=== PATIENT | female | born 1935 | race Caucasian/White ===

== ENCOUNTER 2016-12-12 08:27 | Inpatient (IN) | payer OTHER ==
[2016-12-12] MEDS ORDERED: DIAZEPAM 5 MG TAB PO ONE (08:36)
[2016-12-12] MEDS ORDERED: ASPIRIN EC 325 MG TAB PO ONE (08:36)
[2016-12-12] MEDS ORDERED: NS 1,000 ML IV ONE (08:36)
[2016-12-12] MEDS ORDERED: methylPREDNISolone SOD SUCC 125 MG/2 ML VIAL IVP ONE (08:36)
[2016-12-12] MEDS ORDERED: FAMOTIDINE 20 MG/NACL 50 ML IV ONE (08:36)
[2016-12-12] MEDS ORDERED: EPINEPHrine 1 MG/10 ML SYR IVP ONE (08:58)
[2016-12-12] MEDS ORDERED: methylPREDNISolone SOD SUCC 125 MG/2 ML VIAL ONE (08:58)
--- NOTE | 2016-12-12 08:58 | CPEKG ---
Heart Rate: 70 RR Interval: 857 P-R Interval: 144 QRSD Interval: 80 QT Interval: 372 QTC Interval: 402 P Charlotte: 83 QRS Charlotte: -3 T Wave Charlotte: 19 EKG Severity - NORMAL ECG - EKG Impression: SINUS RHYTHM EKG Impression: SINUS RHYTHM HAS REPLACED SVT (AND DRAMATIC ST/T WAVE CHANGES) EKG Impression: NON SPECIFICST/T CHANGES REMAIN Electronically Signed By: Edwin Ramirez 14-Dec-2016 08:56:28
[2016-12-12] MEDS ORDERED: fentaNYL 100 MCG/2 ML INJ ONE (08:59)
[2016-12-12] MEDS ORDERED: FAMOTIDINE 20 MG/NACL/50 ML BAG IV ONE (08:59)
[2016-12-12] MEDS ORDERED: LIDOCAINE 1% 30 ML SDV ONE (08:59)
[2016-12-12] MEDS ORDERED: MIDAZOLAM 2 MG/2 ML VIAL ONE (08:59)
[2016-12-12] MEDS ORDERED: IOPAMIDOL (ISOVUE-370) 150 ML BTL IV ONE (08:59)
[2016-12-12 09:17] LABS: % IMMATURE GRANULYOCYTES 0.3 % (0.0-1.1); ABSOLUTE IMMATURE GRANULOCYTES 0.02 10^3/uL (0.00-0.10); ADD DIFF? NO; ADD MORPH? NO; ADD SCAN? NO; ATYPICAL LYMPHOCYTE FLAG 10 (0-99); FRAGMENT RBC FLAG 0 (0-99); HEMATOCRIT 40.2 % (38.0-47.0); HEMOGLOBIN 13.5 g/dL (12.6-16.3); LEFT SHIFT FLG 0 (0-99); LIPEMIA HEMOLYSIS FLAG 80 (0-99); MEAN CELL HEMOGLOBIN 31.9 pg (27.9-34.1); MEAN CELL HEMOGLOBIN CONCENTR. 33.6 g/dL (32.4-36.7); MEAN PLATELET VOLUME 9.4 fL (8.7-11.7); PLATELET CLUMPS FLAG 0 (0-99); PLATELET COUNT 182 10^3/uL (150-400); RED BLOOD CELL COUNT 4.23 10^6/uL (4.18-5.33); RED CELL DISTRIBUTION WIDTH 13.5 % (11.5-15.2)
[2016-12-12 09:27] LABS: INR 1.06 (0.83-1.16); PROTIME(PATIENT) 13.7 SEC (12.0-15.0)
[2016-12-12 09:42] LABS: ANION GAP 9 mEq/L (8-16); CARBON DIOXIDE 25 mEq/l (22-31); CHLORIDE 109 mEq/L (97-110); CHOLESTEROL 176 mg/dL (140-220); CHOLESTEROL/HDL RATIO 2.29 RATIO (1.00-4.44); CREATININE 0.7 mg/dL (0.6-1.0); GLOMERULAR FILTRATION RATE > 60; GLUCOSE 88 mg/dL (70-100); HIGH DENSITY LIPOPROTEIN 77 mg/dL (40-85); LDL/HDL RATIO 1.13 RATIO (1.00-3.22); LOW DENSITY LIPOPROTEIN 87 mg/dL (80-100); MAGNESIUM 1.9 mg/dL (1.6-2.3); NON-HIGH DENSITY LIPOPROTEIN 99 mg/dL (90-129); SODIUM 143 mEq/L (134-144); TRIGLYCERIDE 64 mg/dL (35-135); VERY LOW DENSITY LIPOPROTEINS 12 mg/dL (8-25)
--- NOTE | 2016-12-12 11:04 | PDDXCAT ---
Diagnostic Cath Note - . Date: 12/12/16 Solar Consultant: Jw Indication: other (pre AVR) - Procedure Access: right groin Procedure: coronary angiography, right heart catheterization - Materials Left Heart Cath size: 6F Left Heart Cath materials: JL4.0, JR4.0 Right Heart Cath size: 7F Right Heart Cath materials: PWP catheter - Findings-Left Heart Catheterization LM: minimal CAD LAD: minimal CAD in the LAD. 1 principal diagonal with 30% ostial stenosis LCX: two large branching OMs. No sig CAD RCA: dominant. No flow limiting CAD - Findings-Right Heart Catheterization RA: mean 11 mmHg RV: 49/7 PA: 48/21. Mean 33 PAOP: 19 AO: 118/72 Complications: none Estimated blood loss: <50ml Closure method: Angioseal Assessment: no significant CAD in this right dominant system Plan: AVR on 12/[address] Betts. Intervention: none
[2016-12-12] MEDS ORDERED: ONDANSETRON 4 MG/2 ML VIAL IVP PRN (11:11)
[2016-12-12] MEDS ORDERED: ATROPINE SULFATE 1 MG/10 ML SYR IVP PRN (11:11)
[2016-12-12] MEDS ORDERED: NITROGLYCERIN 0.4 MG BTL SL PRN (11:11)
[2016-12-12] MEDS ORDERED: OXYCODONE/APAP 5/325 TAB PO PRN (11:11)
[2016-12-12] MEDS ORDERED: ATROPINE SULFATE 1 MG/10 ML SYR ONE (11:14)
[2016-12-12] MEDS ORDERED: ACETAMINOPHEN 325 MG TAB PO PRN (13:23)
[2016-12-12] MEDS ORDERED: LORazepam 1 MG TAB PO PRN (13:23)
[2016-12-12] MEDS ORDERED: ALBUTEROL 60 PUFFS/8 GM MDI IH PRN (13:26)
[2016-12-12] MEDS: GLUCOSAMINE/CHONDROITIN CAP PO SCH (15:46)
[2016-12-12] MEDS: CHOLECALCIFEROL VIT D3 2,000 UNITS TAB/CAP PO SCH (15:46)
[2016-12-12] MEDS ORDERED: CHLORHEXIDINE GLUC HIBICLENS 118 ML BTL TP SCH (21:00)
[2016-12-12] MEDS: MUPIROCIN 2% 22 GM OINT NS SCH (22:14)
[2016-12-12] MEDS: LATANOPROST 0.005% 2.5 ML OPHT DROPS EACHEYE SCH (22:16)
[2016-12-13] MEDS ORDERED: SODIUM BICARBONATE 20 MEQ, LIDOCAINE 1% 10 ML in NORMOSOL-R 1,000 ML MISC ONE (06:00)
[2016-12-13] MEDS ORDERED: PHENYLEPHRINE HCL 50 MG in NS 250 ML IV ONE (06:00)
[2016-12-13] MEDS ORDERED: NS 1,000 ML IV ONE (06:00)
[2016-12-13] MEDS ORDERED: NOREPINEPHRINE BITARTRATE 16 MG in NS 250 ML IV ONE (06:00)
[2016-12-13] MEDS ORDERED: CITRATE DEXTROSE SOLN 500 ML BAG MISC ONE (06:00)
[2016-12-13] MEDS ORDERED: ceFAZolin 2 GM/DEXTROSE 100 ML IV ONE (06:00)
[2016-12-13] MEDS ORDERED: INSULIN REGULAR HUMAN 100 UNIT in NS 100 ML IV ONE (06:00)
[2016-12-13] MEDS ORDERED: MANNITOL 25% 12.5 GM/50 ML VIAL IV ONE (06:00)
[2016-12-13] MEDS ORDERED: niCARdipine/NACL 200 ML IV ONE (06:00)
[2016-12-13] MEDS ORDERED: AMINOCAPROIC ACID 5 GM/20 ML VIAL IV ONE (06:00)
[2016-12-13 06:06] LABS: ANION GAP 10 mEq/L (8-16); CALCIUM 10.1 mg/dL (8.5-10.4); CARBON DIOXIDE 21 mEq/l (22-31); CHLORIDE 113 mEq/L (97-110); CREATININE 0.6 mg/dL (0.6-1.0); GLOMERULAR FILTRATION RATE > 60; GLUCOSE 92 mg/dL (70-100); POTASSIUM 4.9 mEq/L (3.5-5.2); SODIUM 144 mEq/L (134-144); SPECIMEN HEMOLYSIS 162
[2016-12-13] MEDS ORDERED: PROTAMINE SULFATE 50 MG/5 ML VIAL IVP ONE (06:42)
[2016-12-13] MEDS ORDERED: CALCIUM CHLORIDE 1 GM/10 ML INJ ONE ×2 (06:42→08:20)
[2016-12-13] MEDS ORDERED: ALBUMIN 5% 250 ML BOTTLE IV ONE (06:42)
[2016-12-13] MEDS ORDERED: MILRINONE/DEXTROSE/100 ML BAG IV ONE (06:42)
[2016-12-13] MEDS ORDERED: POTASSIUM Cl (KCl) 20 MEQ/50 ML BAG IV ONE (06:43)
[2016-12-13] MEDS ORDERED: niCARdipine/NACL/200 ML BAG IV ONE (06:43)
[2016-12-13] MEDS ORDERED: LIDOCAINE 2% 100 MG/5 ML SYR IVP ONE ×2 (06:43→08:20)
[2016-12-13] MEDS ORDERED: DOPamine/DEXTROSE/250 ML BAG IV ONE (06:43)
[2016-12-13] MEDS ORDERED: AMINOCAPROIC ACID 5 GM/20 ML VIAL ONE (06:43)
[2016-12-13] MEDS ORDERED: CITRATE DEXTROSE SOLN 500 ML BAG ONE (06:43)
[2016-12-13] MEDS ORDERED: NA BICARBONATE 50 MEQ/50 ML VIAL ONE (06:43)
[2016-12-13] MEDS ORDERED: MAGNESIUM SULFATE 1 GM/2 ML VIAL ONE (06:44)
[2016-12-13] MEDS ORDERED: methylPREDNISolone SOD SUCC 1 GM/8 ML VIAL ONE (06:44)
[2016-12-13] MEDS ORDERED: AMIODARONE HCL 150 MG/3 ML VIAL ONE (06:44)
[2016-12-13] MEDS ORDERED: ADENOSINE 6 MG/2 ML VIAL ONE (06:44)
[2016-12-13] MEDS ORDERED: ceFAZolin 1 GM VIAL ONE (06:45)
[2016-12-13] MEDS ORDERED: HEPARIN 10,000 UNIT/10 ML MDV ONE (06:45)
[2016-12-13] MEDS ORDERED: MIDAZOLAM 2 MG/2 ML VIAL ONE ×3 (08:14→08:23)
[2016-12-13] MEDS ORDERED: ONDANSETRON 4 MG/2 ML VIAL ONE (08:20)
[2016-12-13] MEDS ORDERED: DEXAMETHASONE 4 MG/ML VIAL ONE (08:20)
[2016-12-13] MEDS ORDERED: ROCURONIUM 100 MG/10 ML VIAL ONE (08:20)
[2016-12-13] MEDS ORDERED: PHENYLEPHRINE HCL 100 MCG/ML SYR ONE ×3 (08:20→11:12)
[2016-12-13] MEDS ORDERED: SKIN ADHESIVE (DERMABOND) 1 EACH TP ONE (08:21)
[2016-12-13] MEDS ORDERED: LIDOCAINE HCL 160 MG/4 ML LTA KIT TP ONE (08:21)
[2016-12-13] MEDS ORDERED: MINERAL OIL 10 ML VIAL TP ONE (08:22)
[2016-12-13] MEDS ORDERED: REMIFENTANIL HCL 1 MG VIAL ONE (08:22)
[2016-12-13] MEDS ORDERED: fentaNYL 100 MCG/2 ML INJ ONE (08:23)
[2016-12-13] MEDS ORDERED: PROPOFOL/EMULSION 500 MG/50 ML BOTTLE IV ONE (08:23)
[2016-12-13] MEDS ORDERED: SUGAMMADEX SODIUM 200 MG/2 ML VIAL IVP ONE (11:12)
[2016-12-13] MEDS ORDERED: epHEDrine SULFATE 10 MG/ML SYR ONE ×2 (11:12→12:29)
[2016-12-13] MEDS ORDERED: PROPOFOL 200 MG/20 ML VIAL ONE (11:14)
[2016-12-13] MEDS ORDERED: fentaNYL 250 MCG/5 ML INJ ONE (11:14)
[2016-12-13] MEDS ORDERED: BUPIVACAINE/EPI 0.25% 30 ML SDV ONE (11:34)
[2016-12-13] MEDS ORDERED: KETOROLAC 30 MG/1 ML SDV ONE (11:58)
[2016-12-13] MEDS ORDERED: fentaNYL 100 MCG/2 ML INJ IVP PRN (12:24)
[2016-12-13] MEDS ORDERED: BISACODYL 10 MG SUPP PR PRN (12:24)
[2016-12-13] MEDS ORDERED: CEPACOL LOZENGE PO PRN (12:24)
[2016-12-13] MEDS ORDERED: D50W 25 GM/50 ML SYR IVP PRN (12:24)
[2016-12-13] MEDS ORDERED: POTASSIUM Cl (KCl) 50 ML IV PRN (12:24)
[2016-12-13] MEDS ORDERED: PANTOPRAZOLE SODIUM 40 MG in NS 100 ML IV ONE (12:24)
[2016-12-13] MEDS ORDERED: ONDANSETRON DISINTEGRATING 4 MG TAB PO PRN (12:24)
[2016-12-13] MEDS ORDERED: MEPERIDINE 25 MG/ML SYR IVP PRN (12:24)
[2016-12-13] MEDS ORDERED: METOCLOPRAMIDE 10 MG/2 ML VIAL IVP PRN (12:24)
[2016-12-13] MEDS ORDERED: LACTULOSE 20 GM/30 ML UDCUP PO PRN (12:24)
[2016-12-13] MEDS ORDERED: POLYETHYLENE GLYCOL 3350 17 GM PKT PO PRN (12:24)
[2016-12-13] MEDS ORDERED: ACETAMINOPHEN 650 MG SUPP PR PRN (12:24)
[2016-12-13] MEDS ORDERED: ONDANSETRON 4 MG/2 ML VIAL IVP PRN (12:24)
[2016-12-13] MEDS ORDERED: SODIUM CL NASAL 45 ML BTL EACHNARE PRN (12:24)
[2016-12-13] MEDS ORDERED: MAGNESIUM SULF 2 GM/WATER 50 ML IV ONE (12:24)
[2016-12-13] MEDS ORDERED: MAGNESIUM HYDROXIDE 30 ML UDCUP PO PRN (12:24)
[2016-12-13] MEDS ORDERED: NS 1,000 ML IV SCH (12:30)
[2016-12-13] MEDS ORDERED: INSULIN REGULAR HUMAN 100 UNIT in NS 100 ML IV SCH (12:30)
[2016-12-13] MEDS ORDERED: fentaNYL 25 MCG PATCH TD SCH (13:00)
[2016-12-13] MEDS: CHOLECALCIFEROL VIT D3 2,000 UNITS TAB/CAP PO SCH (13:10)
[2016-12-13] MEDS: GLUCOSAMINE/CHONDROITIN CAP PO SCH (13:13)
[2016-12-13] MEDS: ALBUMIN 5% 250 ML IV PRN (13:49)
[2016-12-13] MEDS: ceFAZolin 2 GM in D5W 100 ML IV SCH ×2 (13:55→20:09)
[2016-12-13] MEDS ORDERED: ceFAZolin 2 GM/DEXTROSE 100 ML IV SCH (14:00)
[2016-12-13] MEDS ORDERED: ALBUMIN 5% 250 ML IV ONE (16:30)
[2016-12-13] MEDS ORDERED: NOREPINEPHRINE BITARTRATE 16 MG in D5W 250 ML IV SCH (18:30)
[2016-12-13] MEDS: KETOROLAC 15 MG/1 ML SDV IVP SCH (20:01)
[2016-12-13 20:02] LABS: CALCULATED OXYGEN SATURATION 91 % (92-95)
[2016-12-13] MEDS: SENNOSIDES/DOCUSATE SODIUM TAB PO SCH (22:04)
[2016-12-13] MEDS: LATANOPROST 0.005% 2.5 ML OPHT DROPS EACHEYE SCH (22:04)
[2016-12-13] MEDS: MUPIROCIN 2% 22 GM OINT NS SCH (22:04)
[2016-12-13 22:57] LABS: HEMOGLOBIN 9.3 g/dL (12.6-16.3); MEAN CELL HEMOGLOBIN 31.8 pg (27.9-34.1); MEAN CELL HEMOGLOBIN CONCENTR. 33.2 g/dL (32.4-36.7); MEAN CELL VOLUME 95.9 fL (81.5-99.8); RED BLOOD CELL COUNT 2.92 10^6/uL (4.18-5.33); RED CELL DISTRIBUTION WIDTH 13.7 % (11.5-15.2)
[2016-12-13] MEDS: HYDROCODONE/APAP 5/325 TAB PO PRN (23:06)
[2016-12-14] MEDS: KETOROLAC 15 MG/1 ML SDV IVP SCH ×5 (00:04→23:50)
[2016-12-14] MEDS: ALBUMIN 5% 250 ML IV PRN (04:00)
[2016-12-14 04:22] LABS: % IMMATURE GRANULYOCYTES 0.5 % (0.0-1.1); ABSOLUTE IMMATURE GRANULOCYTES 0.05 10^3/uL (0.00-0.10); ADD DIFF? NO; ADD MORPH? NO; ADD SCAN? NO; ATYPICAL LYMPHOCYTE FLAG 0 (0-99); FRAGMENT RBC FLAG 0 (0-99); HEMATOCRIT 27.2 % (38.0-47.0); LEFT SHIFT FLG 0 (0-99); LIPEMIA HEMOLYSIS FLAG 80 (0-99); MEAN CELL HEMOGLOBIN CONCENTR. 33.1 g/dL (32.4-36.7); MEAN CELL VOLUME 96.8 fL (81.5-99.8); PLATELET CLUMPS FLAG 50 (0-99); PLATELET COUNT 89 10^3/uL (150-400); RED BLOOD CELL COUNT 2.81 10^6/uL (4.18-5.33); RED CELL DISTRIBUTION WIDTH 13.9 % (11.5-15.2)
[2016-12-14 04:35] LABS: ANION GAP 6 mEq/L (8-16); CALCIUM 8.8 mg/dL (8.5-10.4); CARBON DIOXIDE 24 mEq/l (22-31); CHLORIDE 113 mEq/L (97-110); CREATININE 0.6 mg/dL (0.6-1.0); GLOMERULAR FILTRATION RATE > 60; GLUCOSE 92 mg/dL (70-100); POTASSIUM 4.2 mEq/L (3.5-5.2); SODIUM 143 mEq/L (134-144)
[2016-12-14] MEDS: HYDROCODONE/APAP 5/325 TAB PO PRN (04:45)
[2016-12-14] MEDS: ceFAZolin 2 GM in D5W 100 ML IV SCH ×3 (05:32→22:10)
[2016-12-14] MEDS: HEPARIN 5,000 UNIT/0.5 ML SYR SC SCH ×2 (05:33→14:46)
--- NOTE | 2016-12-14 06:59 | SOAPPROG ---
SOAP Progress Note Assessment/Plan: POD #1: Mini AVR with #21 Magna bioprosthesis Severe symptomatic s/p mini AVR with #21 Magna bioprosthesis - D/C AL/FC/José drain - Transfer to PCU - Ambulation - SQ heparin for DVT prophylaxis - BB when better BP Subjective: Feels light-headed. Pain well-controlled. No SOB. Objective: Vital Signs Temp Pulse Resp BP Pulse Ox 37.6 C 67 17 87/42 L 89 L 12/14/16 06:00 12/14/16 06:30 12/14/16 06:30 12/14/16 06:30 12/14/16 06:30 Laboratory Results 12/14/16 04:00 12/14/16 04:00 12/13/16 12/14/16 12/15/16 05:59 05:59 05:59 Intake Total 1050 1223 Output Total 1595 Balance 1050 -372 PT 13.7 SEC (12.0-15.0) 12/12/16 08:50 INR 1.06 (0.83-1.16) 12/12/16 08:50 Physical Exam - Physical Exam General Appearance: WD/WN, alert, no apparent distress EENT: No scleral icterus (R), No scleral icterus (L) Neck: normal inspection Respiratory: chest non-tender, lungs clear, normal breath sounds, No respiratory distress Cardiac/Chest: regular rate, rhythm Abdomen: non-tender, soft, No distended Skin: normal color, warm/dry Extremities: No pedal edema Neuro/Psych: no motor/sensory deficits, alert, normal mood/affect, oriented x 3 ICD10 Worksheet Patient Problems: Problems Problem Status Onset S/P AVR (aortic valve replacement) Acute Aortic stenosis, severe Chronic
[2016-12-14] MEDS ORDERED: traMADol 50 MG TAB PO PRN (08:10)
[2016-12-14] MEDS ORDERED: ASPIRIN 81 MG CHEWABLE TAB TUBE PRN (09:00)
[2016-12-14] MEDS: GLUCOSAMINE/CHONDROITIN CAP PO SCH (09:30)
[2016-12-14] MEDS: CHOLECALCIFEROL VIT D3 2,000 UNITS TAB/CAP PO SCH (09:30)
[2016-12-14] MEDS: MUPIROCIN 2% 22 GM OINT NS SCH ×3 (09:31→20:56)
[2016-12-14] MEDS: SENNOSIDES/DOCUSATE SODIUM TAB PO SCH ×2 (09:31→20:54)
[2016-12-14] MEDS: PANTOPRAZOLE SODIUM 40 MG TAB PO SCH (11:58)
[2016-12-14] MEDS: ASPIRIN 81 MG CHEWABLE TAB PO SCH (20:55)
[2016-12-14] MEDS: LATANOPROST 0.005% 2.5 ML OPHT DROPS EACHEYE SCH (20:57)
[2016-12-15 04:19] LABS: % IMMATURE GRANULYOCYTES 0.4 % (0.0-1.1); ABSOLUTE IMMATURE GRANULOCYTES 0.04 10^3/uL (0.00-0.10); ADD DIFF? NO; ADD MORPH? NO; ADD SCAN? NO; ATYPICAL LYMPHOCYTE FLAG 0 (0-99); FRAGMENT RBC FLAG 0 (0-99); HEMATOCRIT 26.7 % (38.0-47.0); HEMOGLOBIN 8.7 g/dL (12.6-16.3); LEFT SHIFT FLG 0 (0-99); LIPEMIA HEMOLYSIS FLAG 80 (0-99); MEAN CELL HEMOGLOBIN 32.2 pg (27.9-34.1); MEAN CELL HEMOGLOBIN CONCENTR. 32.6 g/dL (32.4-36.7); MEAN CELL VOLUME 98.9 fL (81.5-99.8); MEAN PLATELET VOLUME 11.1 fL (8.7-11.7); PLATELET CLUMPS FLAG 0 (0-99); PLATELET COUNT 71 10^3/uL (150-400); RED CELL DISTRIBUTION WIDTH 14.4 % (11.5-15.2)
[2016-12-15 04:25] LABS: ANION GAP 6 mEq/L (8-16); CARBON DIOXIDE 24 mEq/l (22-31); CHLORIDE 108 mEq/L (97-110); CREATININE 0.7 mg/dL (0.6-1.0); GLOMERULAR FILTRATION RATE > 60; GLUCOSE 110 mg/dL (70-100); POTASSIUM 4.3 mEq/L (3.5-5.2); SODIUM 138 mEq/L (134-144)
[2016-12-15] MEDS: KETOROLAC 15 MG/1 ML SDV IVP SCH (05:58)
--- NOTE | 2016-12-15 07:44 | SOAPPROG ---
SOAP Progress Note Assessment/Plan: Assessment: POD#2 Mini AVR (jaja-sternotomy) with #21 Magna bioprosthesis Symptomatic severe - s/p tissue AVR via partial upper sternotomy. Stable early postop course. Drain out. Antithrombotic prophylaxis with ASA alone pending stability of rhythm. Acute expected blood loss anemia with thrombocytopenia - Stable. No transfusions required. Ongoing plt suppression likely exacerbated by NSAID. Presence of PPM - Hx SSS, AF/Fl ablation. No evidence postop dysfx/lead dislodgment. AF prophylaxis with BB as allowed by BP. LORAINE - Stable. Home mandibular device and nocturnal O2. Plan: D/C SQ hep and toradol. Begin diuresis. Lasix 20mg IV/KCl 10mEq today. Begin metoprolol 12.5 mg BID w conservative hold parameters. Inc activity and pulm toilet. Dispo - SNF as lives alone. ? Gopal Luis. Anticipate medical readiness within 48hrs. 12/15/16 07:43 Subjective: Animated. Feels well. Not much appetite, misses her garlic. Looking forward to shower. Motivated to participate in rehab. Objective: Vital Signs Temp Pulse Resp BP Pulse Ox 36.8 C 83 20 132/70 H 92 12/15/16 04:00 12/15/16 04:00 12/15/16 04:00 12/15/16 04:00 12/15/16 04:00 Laboratory Results 12/15/16 03:55 12/15/16 03:55 12/14/16 12/15/16 12/16/16 05:59 05:59 05:59 Intake Total 1223 950 Output Total 1595 750 Balance -372 200 PT 13.7 SEC (12.0-15.0) 12/12/16 08:50 INR 1.06 (0.83-1.16) 12/12/16 08:50 Predom rhythm sinus 60s-70s, rare Apacing. BP creep, more consistently > 100. Balanced I/Os. Stable labs. Physical Exam - Physical Exam General Appearance: alert, no apparent distress Respiratory: lungs clear Cardiac/Chest: regular rate, rhythm, other (Sternotomy CDI. Drain site dry.) Abdomen: normal bowel sounds, non-tender, soft Skin: warm/dry Extremities: swelling (1+ generalized) ICD10 Worksheet Patient Problems: Problems Problem Status Onset S/P AVR (aortic valve replacement) Acute Aortic stenosis, severe Chronic
[2016-12-15] MEDS ORDERED: FUROSEMIDE 20 MG/2 ML VIAL IVP ONE (07:45)
[2016-12-15] MEDS ORDERED: POTASSIUM CL 10 MEQ TAB PO ONE (07:45)
[2016-12-15] MEDS: CHOLECALCIFEROL VIT D3 2,000 UNITS TAB/CAP PO SCH (09:02)
[2016-12-15] MEDS: PANTOPRAZOLE SODIUM 40 MG TAB PO SCH (09:03)
[2016-12-15] MEDS: SENNOSIDES/DOCUSATE SODIUM TAB PO SCH ×2 (09:03→20:10)
[2016-12-15] MEDS: GLUCOSAMINE/CHONDROITIN CAP PO SCH (09:03)
[2016-12-15] MEDS: MUPIROCIN 2% 22 GM OINT NS SCH (09:05)
[2016-12-15] MEDS: METOPROLOL TARTRATE 25 MG TAB PO SCH (20:11)
[2016-12-15] MEDS: LATANOPROST 0.005% 2.5 ML OPHT DROPS EACHEYE SCH (20:12)
[2016-12-15] MEDS: ASPIRIN 81 MG CHEWABLE TAB PO SCH (20:12)
[2016-12-15] MEDS ORDERED: AMIODARONE HCL 100 ML IV ONE (21:25)
[2016-12-15] MEDS ORDERED: AMIODARONE HCL 200 ML IV ONE (21:25)
[2016-12-16] MEDS ORDERED: AMIODARONE HCL 540 MG in D5W 300 ML IV ONE ×3 (03:30→22:00)
[2016-12-16 04:46] LABS: HEMATOCRIT 25.5 % (38.0-47.0); HEMOGLOBIN 8.1 g/dL (12.6-16.3); MEAN CELL HEMOGLOBIN 31.2 pg (27.9-34.1); MEAN CELL HEMOGLOBIN CONCENTR. 31.8 g/dL (32.4-36.7); MEAN CELL VOLUME 98.1 fL (81.5-99.8); RED BLOOD CELL COUNT 2.6 10^6/uL (4.18-5.33); RED CELL DISTRIBUTION WIDTH 13.8 % (11.5-15.2)
--- NOTE | 2016-12-16 09:09 | SOAPPROG ---
SOAP Progress Note Assessment/Plan: Assessment: POD#3 Mini AVR (jaja-sternotomy) with #21 Magna bioprosthesis Symptomatic severe - s/p tissue AVR via partial upper sternotomy. Stable early postop course. Drain out. Antithrombotic prophylaxis with ASA. Acute expected blood loss anemia with thrombocytopenia - Stable. No transfusions required. Platelets trending up. h/o AF/SSS s/p multiple ablations/PPM insertion. Overnight with LIYAH. Continue Amiodarone, uptitrate BB. Coumadin goal 2-3 for thromboprophylaxis- duration tbd by cardiology (Dr. Escalera) LORAINE - Stable. Home mandibular device and nocturnal O2. Disposition - plan for SNF earliest Sunday Subjective: Feels well. Upset regarding having to restart Coumadin but understands importance. Denies CP/SOB. Ambulating multiple times/day. Desires to be discharged to SNF d/t living alone. Objective: Vital Signs Temp Pulse Resp BP Pulse Ox 37.4 C 126 H 18 140/66 H 97 12/16/16 07:59 12/16/16 07:59 12/16/16 07:59 12/16/16 07:59 12/16/16 07:59 Laboratory Results 12/16/16 04:05 12/16/16 04:05 12/15/16 12/16/16 12/17/16 05:59 05:59 05:59 Intake Total 950 500 Output Total 750 2350 100 Balance 200 -1850 -100 PT 13.7 SEC (12.0-15.0) 12/12/16 08:50 INR 1.06 (0.83-1.16) 12/12/16 08:50 Physical Exam - Physical Exam General Appearance: WD/WN, alert, no apparent distress EENT: No scleral icterus (R), No scleral icterus (L) Neck: normal inspection Respiratory: No respiratory distress Cardiac/Chest: irregularly irregular Abdomen: non-tender, soft, No distended Skin: normal color, warm/dry Extremities: pedal edema Neuro/Psych: no motor/sensory deficits, alert, normal mood/affect, oriented x 3 ICD10 Worksheet Patient Problems: Problems Problem Status Onset S/P AVR (aortic valve replacement) Acute Aortic stenosis, severe Chronic
[2016-12-16] MEDS ORDERED: METOPROLOL TARTRATE 25 MG TAB PO ONE (09:14)
[2016-12-16] MEDS ORDERED: AMIODARONE HCL 100 ML IV ONE ×2 (09:14→20:02)
[2016-12-16] MEDS: GLUCOSAMINE/CHONDROITIN CAP PO SCH (10:21)
[2016-12-16] MEDS: PANTOPRAZOLE SODIUM 40 MG TAB PO SCH (10:21)
[2016-12-16] MEDS: SENNOSIDES/DOCUSATE SODIUM TAB PO SCH ×2 (10:21→20:50)
[2016-12-16] MEDS: CHOLECALCIFEROL VIT D3 2,000 UNITS TAB/CAP PO SCH (10:21)
[2016-12-16] MEDS: METOPROLOL TARTRATE 25 MG TAB PO SCH ×2 (11:11→20:51)
[2016-12-16] MEDS: FUROSEMIDE 40 MG TAB PO SCH ×4 (11:26→15:34)
[2016-12-16] MEDS: POTASSIUM CL 10 MEQ TAB PO SCH ×2 (11:26→11:29)
[2016-12-16] MEDS: POTASSIUM CL 20 MEQ TAB PO SCH ×2 (11:29→20:51)
[2016-12-16] MEDS ORDERED: WARFARIN SODIUM 5 MG TAB PO ONE (16:00)
[2016-12-16] MEDS: ASPIRIN 81 MG CHEWABLE TAB PO SCH (20:51)
[2016-12-16] MEDS: LATANOPROST 0.005% 2.5 ML OPHT DROPS EACHEYE SCH (21:01)
[2016-12-16] MEDS ORDERED: ACETAMINOPHEN 325 MG TAB PO PRN (22:00)
[2016-12-17 06:51] LABS: INR 1.31 (0.83-1.16); PROTIME(PATIENT) 16.3 SEC (12.0-15.0)
--- NOTE | 2016-12-17 08:16 | SOAPPROG ---
SOAP Progress Note Assessment/Plan: Assessment: POD#4 Mini AVR (jaja-sternotomy) with #21 Magna bioprosthesis Symptomatic severe - s/p tissue AVR via partial upper sternotomy. Stable early postop course. Drain out. Antithrombotic prophylaxis with ASA. Acute expected blood loss anemia with thrombocytopenia - Stable. No transfusions required. h/o AF/SSS s/p multiple ablations/PPM insertion with post-operative paroxysmal LIYAH - Eliquis for thromboprophylaxis LORAINE - Stable. Home mandibular device and nocturnal O2. Disposition - plan for SNF today Subjective: Feels well. Denies CP/SOB. Relieved rhythm is normal once again. Objective: Vital Signs Temp Pulse Resp BP Pulse Ox 36.7 C 67 19 114/77 98 12/17/16 04:00 12/17/16 04:00 12/17/16 04:00 12/17/16 04:00 12/17/16 04:00 Laboratory Results 12/16/16 04:05 12/16/16 04:05 12/16/16 12/17/16 12/18/16 05:59 05:59 05:59 Intake Total 500 1980 400 Output Total 2350 1600 700 Balance -1850 380 -300 PT 16.3 SEC (12.0-15.0) H 12/17/16 05:40 INR 1.31 (0.83-1.16) H 12/17/16 05:40 Physical Exam - Physical Exam General Appearance: WD/WN, alert, no apparent distress EENT: No scleral icterus (R), No scleral icterus (L) Neck: normal inspection Respiratory: No respiratory distress Cardiac/Chest: regular rate, rhythm Abdomen: non-tender, soft, No distended Skin: normal color, warm/dry Extremities: pedal edema Neuro/Psych: no motor/sensory deficits, alert, normal mood/affect, oriented x 3 ICD10 Worksheet Patient Problems: Problems Problem Status Onset Atrial fibrillation with rapid ventricular response Acute S/P AVR (aortic valve replacement) Acute Aortic stenosis, severe Chronic
[2016-12-17] MEDS: CHOLECALCIFEROL VIT D3 2,000 UNITS TAB/CAP PO SCH (08:29)
[2016-12-17] MEDS: SENNOSIDES/DOCUSATE SODIUM TAB PO SCH (08:30)
[2016-12-17] MEDS: POTASSIUM CL 20 MEQ TAB PO SCH (08:30)
[2016-12-17] MEDS: GLUCOSAMINE/CHONDROITIN CAP PO SCH (08:30)
[2016-12-17] MEDS: FUROSEMIDE 40 MG TAB PO SCH (08:30)
[2016-12-17] MEDS: PANTOPRAZOLE SODIUM 40 MG TAB PO SCH (08:30)
[2016-12-17] MEDS: METOPROLOL TARTRATE 25 MG TAB PO SCH (08:30)
[2016-12-17] MEDS: FUROSEMIDE 40 MG/4 ML VIAL IVP SCH ×2 (10:29→18:31)
[2016-12-17] MEDS ORDERED: APIXABAN 2.5 MG TAB PO SCH (10:30)
[2016-12-17 11:20] VITALS: BP 113/69; PULSE 73; RESP 22; TEMP 98.5; O2SAT 94
--- NOTE | 2016-12-17 11:48 | PDIAF ---
- Diagnosis Diagnosis: s/p mini-AVR Code Status: Full Code - Medication Management Discharge Medications: Medications to Continue on Transfer LORazepam [Ativan (*)] 0.5 - 1 mg PO HS PRN 01/02/13 [Last Taken Unknown] Acetaminophen [Tylenol 325mg (*)] 325 mg PO DAILY PRN 12/12/16 [Last Taken Unknown] Albuterol [Proventil Inhaler HFA (*)] 1 - 2 puffs IH DAILY PRN 12/12/16 [Last Taken Unknown] Aspirin [Aspirin 81mg (*)] 162 mg PO HS 12/12/16 [Last Taken 12/11/16] Cholecalciferol Vit D3 [Vitamin D3 2000 units tab (OTC)] 2,000 units PO DAILY [Last Taken Unknown] Glucosamine/Chondroitin [Glucosamine/Chondroitin (*)] 1 each PO DAILY 12/12/16 [ Last Taken Unknown] Herbals/Supplements -Info Only 1 ea PO DAILY 12/12/16 [Last Taken Unknown] Latanoprost 0.005% [Xalatan 0.005% (*)] 1 drops EACHEYE HS 12/12/16 [Last Taken 12/11/16] Metoprolol Succinate Xr [Toprol Xl 50 mg (*)] 50 mg PO DAILY 12/12/16 [Last Taken 12/12/16] Pantoprazole Sodium [Protonix 40mg (*)] 40 mg PO DAILY 12/12/16 [Last Taken ] Amiodarone HCl [Pacerone (*)] 200 mg PO BID #0 tab 12/17/16 [Last Taken Unknown] Amoxicillin 2,000 mg PO ONCE PRN #0 capsule 12/17/16 [Last Taken Unknown] Apixaban [Eliquis] 2.5 mg PO BID #0 tab 12/17/16 [Last Taken Unknown] Furosemide [Lasix 40 MG (*)] 40 mg PO BID 30 Days 12/17/16 [Last Taken Unknown] Metoprolol Tartrate 25 mg PO ONCE #0 tablet 12/17/16 [Last Taken Unknown] Potassium Cl [Klor-Con 20 meq (*)] 20 meq PO BID #0 tab 12/17/16 [Last Taken Unknown] Discharge Medications: Refer to the Discharge Home Medication list for PRN reason. PICC Care - Routine: N/A - Orders Services needed: Registered Nurse, Certified Medical Review Coordinator, Physical Therapy, Occupational Therapy Diet Recommendation: cardiac -low fat low salt, fluid restriction (use comment for amount) (2 Liters) Diet Texture: Regular Texture Diet Weigh Patient: daily Baeza: No Wound Care Instructions: Shower daily and wash wounds (chest/right groin/neck) with soap and water and leave open to air. No ointments/creams. Activity/Weight Bearing Restrictions: Sternal precautions x 4 weeks. No push/ pull activities. No lifting greater than 10 pounds. Additional: Patient has a history of rapid atrial fibrillation and had it during her hospital stay. If she has a rapid heart rate and you need help please call [facility] ([phone]) and ask for Ezio PULIDO, Shital PULIDO , or Cassidy Phelps RN. Do not send her to the ER. - Labs/Radiology Imaging Orders: CXR to be done at [facility] prior to f/u appointment. - Follow Up Care Current Providers and Referrals: Paulina Simon NP [Primary Care Provider] - Gene Betts DO [Doctor of Osteopathy] - 12/21/16 1:00 am Rosa Escalera MD [Medical Doctor] -
--- NOTE | 2016-12-17 15:06 | ECHO ---
[id number] + + [address] : : [place] [address] : : [phone] + + Adult Echocardiographic Report + ------+ :Name: LEROY MARC JStudy Date: 12/17/2016 01:34 PM : : Hospital Admission Number: [id number]: [facility]: :: 1935 Gender: Female Height: 65 in : :Age: 81 yrs Race: WH Weight: 175 lb : :Reason For Study: Sp/p AVR #21 Magna bioprosthesis : : BSA: 1.9 meters 2 : + ------+ MMode/2D Measurements \T\ Calculations IVSd: 1.1 cm RVDd: 3.6 cm FS: 41.9 % LVOT diam: 1.5 cm LVPWd: 1.3 cm LVIDd: 4.3 cm EDV(Teich): 85.0 ml LVOT area: 1.7 cm2 LVIDs: 2.5 cm ESV(Teich): 22.8 ml EF(Teich): 73.1 % RVOT diam: 1.7 cm Normal Measurement Values: + + :LVIDd (3.5-5.7cm) IVSd (0.6-1.1cm) LVPWd (0.6-1.1cm) Aortic Root (2.0-3.7cm)Left Atrium (1.5-4.0cm): :LV Vol(d) (76-115ml) LV Vol(s) (29-48ml) Ejec Fraction (50-65%)PV Mikey (0.6- 1.2m/s) TV Mikey (0.4-1.0m/s) : :MV E Mikey (0.8-1.0m/s)MV A Mikey (0.3-1.0m/s)LVOT Mikey (0.7-1.2m/s) Asc Ao Mikey ( 0.9-1.8m/s) : + + Doppler Measurements \T\ Calculations MV E max mikey: MV V2 max: Ao V2 max: LV V1 mean P.1 cm/sec 142.3 cm/sec 282.0 cm/sec 7.1 mmHg MV A max mikey: MV max PG: Ao max PG: LV V1 mean: 77.5 cm/sec 8.1 mmHg 31.8 mmHg 122.9 cm/sec MV E/A: 1.8 MV V2 mean: Ao mean PG: LV V1 VTI: 30.7 cm MV dec time: 76.6 cm/sec 21.4 mmHg 0.18 sec MV mean PG: Ao V2 mean: 2.8 mmHg 214.0 cm/sec MV V2 VTI: 36.1 cm Ao V2 VTI: 60.3 cm MVA(VTI): 1.4 cm2 CAITLIN(I,D): 0.86 cm2 SV(LVOT): 51.7 ml PA V2 max: TR max mikey: 222.6 cm/sec 271.5 cm/sec PA max PG: TR max P.8 mmHg 29.5 mmHg PA V2 mean: RAP systole: 151.9 cm/sec 15.0 mmHg PA mean PG: RVSP(TR): 11.0 mmHg 44.5 mmHg PA V2 VTI: 42.2 cm Left Ventricle The left ventricle is normal in size. There is mild concentric left ventricular hypertrophy. Left ventricular systolic function is normal. There is Doppler evidence for diastolic dysfunction. LVEF =65%. Probably normal wall motions. Right Ventricle The right ventricle is normal in size and function. Atria Moderate LAE noted. Right atrial size is normal. The interatrial septum is intact with no evidence for an atrial septal defect. Mitral Valve Mild to moderate MAC without MV prolapse. There is no mitral valve stenosis. There is trace to mild mitral regurgitation. Tricuspid Valve The tricuspid valve is normal in structure and function. There is no tricuspid stenosis. There is trace tricuspid regurgitation. Aortic Valve Av mean PG 21 mmHg. There is no aortic insufficiency. #21 Magna Bioprosthesis. Pulmonic Valve The pulmonic valve is not well visualized. There is mild valvular pulmonic stenosis. There is no pulmonic valvular regurgitation. Great Vessels The aortic root is normal size. Pericardium/Pleural trivial pericardial effusion. There is a moderate pleural effusion. Conclusion A complete two-dimensional transthoracic echocardiogram was performed (2D, M-mode, Doppler and color flow Doppler). The study was technically difficult. 1)Normal LV size and systolic function with a LVEF of 65%. 2)Mild concentric LVH with diastolic dysfunction. 3)Moderate left atrial enlargement. 4)Bioprosthetic AVR with mildly elevated gradients of peak and mean of 39 and 21 mmHg respectively and no AI. 5)Trivial to mild MR without MV prolapse. 6)Trivial TR noted. Unable to assess PA pressures accurately. 7)Trivial pericardial effusion. 8)Moderate pleural effusion. Final Reading Physician: Medardo Rowan electronically signed on 12/17/2016 03:04 PM Ordering Physician: Aubrey Powers Performed By: Val Parks
--- NOTE | 2016-12-17 19:05 | PDDCSUM ---
Discharge Summary Discharge Summary: ADMISSION DATE: 12/12/16 DISCHARGE DATE: 12/17/16 ADMISSION DX: 1. Severe aortic stenosis DISCHARGE DX: 1. Severe aortic stenosis SECONDARY DX: 1. h/o Pacemaker implantation 2. Atrial fibrillation with h/o multiple ablations PROCEDURES: 12/13/16, Gene Betts 1. Mini-AVR with #21 Magna bioprosthesis HPI: 81 F with known severe admitted 12/12 for risk stratification for planned AVR on 12/13. HOSPITAL COURSE: The patient underwent the procedures above and was transferred to the ICU in stable condition. The patient had post-operative atrial fibrillation which medically converted to sinus rhythm with metoprolol and amiodarone. Eliquis was started for thromboprophylais. CONDITION Good DISPOSITION: [facility] ACTIVITY: Pt was instructed on sternal precautions, activity limitations, and which problems to call [facility] with. Please see Discharge Plan in chart for specifics. D/C MEDICATIONS: 1. LORazepam [Ativan (*)] 0.5 - 1 mg PO HS PRN 2. Acetaminophen [Tylenol 325mg (*)] 325 mg PO DAILY PRN 3. Albuterol [Proventil Inhaler HFA (*)] 1 - 2 puffs IH DAILY PRN 4. Aspirin [Aspirin 81mg (*)] 162 mg PO HS 5. Cholecalciferol Vit D3 [Vitamin D3 2000 units tab (OTC)] 2,000 units PO DAILY 6. Glucosamine/Chondroitin [Glucosamine/Chondroitin (*)] 1 each PO DAILY 7. Herbals/Supplements -Info Only 1 ea PO DAILY 8. Latanoprost 0.005% [Xalatan 0.005% (*)] 1 drops EACHEYE HS 9. Metoprolol Succinate Xr [Toprol Xl 50 mg (*)] 50 mg PO DAILY 10. Pantoprazole Sodium [Protonix 40mg (*)] 40 mg PO DAILY 11. Amiodarone HCl [Pacerone (*)] 200 mg PO BID 12. Amoxicillin 2,000 mg PO ONCE PRN 13. Apixaban [Eliquis] 2.5 mg PO BID 14. Furosemide [Lasix 40 MG (*)] 40 mg PO BID 15. Metoprolol Tartrate 25 mg PO ONCE 16. Potassium Cl [Klor-Con 20 meq (*)] 20 meq PO BID PENDING STUDIES/LABS: 1. CXR - 12/21/16 F/U APPOINTMENTS: 1. Dr. Gene Betts - 12/21/16, 1:[address] Rosa Escalera - to be arranged at surgical follow-up
[2016-12-17] MEDS ORDERED: AMIODARONE HCL 200 MG TAB PO SCH (21:00)
== END 2016-12-17 15:12 | DRG 217 ==
LOC: FCATH 08:27 → F2W 10:38 → F2N 12-13 07:49 → F2W 12-14 10:21
PROVIDERS: ADMIT Thoracic Surgery (Cardiothoracic Vascular Surgery); ATTEND Thoracic Surgery (Cardiothoracic Vascular Surgery)
PROC: 4A023N6 Measurement of Cardiac Sampling and Pressure, Right Heart, Percutaneous Approach (ICD-10-PCS; 2016-12-12)
PROC: B2111ZZ Fluoroscopy of Multiple Coronary Arteries using Low Osmolar Contrast (ICD-10-PCS; 2016-12-12)
PROC: 02RF08Z Replacement of Aortic Valve with Zooplastic Tissue, Open Approach (ICD-10-PCS; principal; 2016-12-13 08:25)
DX: I35.0 Nonrheumatic aortic (valve) stenosis (principal); D62 Acute posthemorrhagic anemia; I48.91 Unspecified atrial fibrillation; I10 Essential (primary) hypertension; E78.5 Hyperlipidemia, unspecified; G47.33 Obstructive sleep apnea (adult) (pediatric); Z95.0 Presence of cardiac pacemaker
CPT/HCPCS: 82947-QW; 97116-GP; 97161-GP; 97165-GO; 97530-GO; 97530-GP; 97535-GO; C1760; G8978-GP-CI; G8978-GP-CK; G8979-GP-CI; G8980-GP-CI; G8987-GO-CJ; G8988-GO-CI; J0153; J0282; J0461; J0690; J1100; J1200; J1265; J1644; J1815; J1885; J2001; J2150; J2250; J2260; J2370; J2405; J2704; J2720; J2765; J2930; J3010; J7060; P9041; Q9967

== ENCOUNTER 2016-12-19 18:53 | Inpatient (IN) | payer OTHER ==
[2016-12-19 19:16] LABS: % IMMATURE GRANULYOCYTES 0.4 % (0.0-1.1); ABSOLUTE IMMATURE GRANULOCYTES 0.04 10^3/uL (0.00-0.10); ADD DIFF? NO; ADD MORPH? NO; ADD SCAN? NO; ATYPICAL LYMPHOCYTE FLAG 10 (0-99); FRAGMENT RBC FLAG 10 (0-99); HEMATOCRIT 32.3 % (38.0-47.0); HEMOGLOBIN 10.7 g/dL (12.6-16.3); LEFT SHIFT FLG 0 (0-99); LIPEMIA HEMOLYSIS FLAG 80 (0-99); MEAN CELL HEMOGLOBIN 32.1 pg (27.9-34.1); MEAN CELL HEMOGLOBIN CONCENTR. 33.1 g/dL (32.4-36.7); MEAN PLATELET VOLUME 10.3 fL (8.7-11.7); PLATELET CLUMPS FLAG 10 (0-99); PLATELET COUNT 261 10^3/uL (150-400); RED BLOOD CELL COUNT 3.33 10^6/uL (4.18-5.33); RED CELL DISTRIBUTION WIDTH 13.5 % (11.5-15.2)
--- NOTE | 2016-12-19 19:22 | EDPHY ---
H & P HPI/ROS: CHIEF COMPLAINT: Confusion, mental status change HISTORY OF PRESENT ILLNESS: patient arrived by EMS and was seen at time of arrival. her son is with her. EMS and the son reports that she has been confused and had difficulty performing tasks. This started late last night after taking Ativan. However over the morning her symptoms did not improve. He arrived at 8:30 a.m. to find her somewhat confused. She had difficulty performing simple tasks including reading filling out forms at her rehabilitation side. She had no facial droop. She had no unilateral weakness. No chest pain. No slurred speech. No dizziness. No headache. She is currently rehabilitation due to a recent surgery that was replacement of her aortic valve. This was done last Sunday. She has been in rehab for 2 days. No other associated complaints or modifying factors. No definite known time of onset of symptoms. No previous history of stroke. No cough or congestion. No urinary complaints. No skin lesions. Currently taking Eliquis postoperatively. REVIEW OF SYSTEMS: Ten systems reviewed and are negative unless otherwise noted in the HPI EXAMINATION General Appearance: Alert, no distress . No facial droop Head: normocephalic, atraumatic Eyes: Pupils equal and round, no conjunctival pallor or injection. EOMs intact. No nystagmus. ENT, Mouth: Mucous membranes moist . Uvula midline. No erythema or edema. Airway is patent Neck: Normal inspection, supple, non-tender Respiratory: Lungs are clear to auscultation. No wheezing, rhonchi or crackles. Cardiovascular: Regular rate and rhythm. systolic murmur. Pulses intact distally with good signs of perfusion and symmetric radial and DP pulses. Gastrointestinal: Abdomen is soft and nontender . No tympany or rigidity. Neurological: A&Ox4. Cranial nerves 2-12 grossly intact. No facial droop. No focal deficits. Strength is symmetric in all 4 limbs. No dysmetria. No sensory deficits. appropriate mental status.NIH stroke scale 0. Skin: Warm and dry, no rash. Surgical incision over the sternum consistent with her median sternotomy. No dehiscence. No purulence. Minimal erythema. Extremities: Nontender, no pedal edema Psychiatric: Mood and affect normal DIFFERENTIAL DIAGNOSES: Including but not limited to TIA, stroke, encephalopathy, delirium, UTI, pneumonia MDM: 7:05 p.m. Reports of confusion in difficulty performing tasks possibly last night and early this morning. No definite known time of onset. No facial droop reported. No unilateral complaints reported. She did have a valvular replacement last Sunday. This was aortic it was bovine. She has been on Eliquis. She does not report any falls or injuries. She is currently at rehab at [facility] in [place]. I discussed this with the son at bedside as well as the cardiothoracic PA who is coming to see the patient at this time. We will order CT scan of the head, and laboratory studies to rule out possibility of infection and/or delirium. She is resting comfortably with a NIH stroke scale is 0 at this time Cardiothoracic PA Ezio Powers contacted me. He said that the family contact him with the above complaints. He is coming to evaluate the patient at this time. 7:50 p.m. notified by radiologist that the CT scan of the head does reveal some parietal edema. This is consistent with subacute presentation. She is nonfocal at this time an NIH stroke scale remained 0. She does have AFib with RVR at this time. She did not have time of arrival but EKG reveals a rate of 132 beats per minute. She is hemodynamically stable in no acute distress. There is no indication for electrocardioversion at this time. We will administer Lopressor to control her rate. She is awake and alert and conversing appropriately. I discussed the case with Dr. Valladares and he will admit the patient to PCU. Cardiothoracic surgery will provide consultation and they are here in the emergency department at this time. They are considering repeat echocardiogram. 8:[address] Valladares notified me that he would like to cancel the MRI. The patient would like to have this done in the morning said karen. MRI has been canceled and she has been admitted to his service. Patient is not a tPA candidate due to resolution of symptoms and concomitant Eliquis. EKG: Interpreted by Dr. Liu SUPERVISION: Patient was evaluated in conjunction with the supervising physician. Please see their note for details. Source: Patient, Family, EMS - Personal History Tetanus Vaccine Date: within 10 yrs - Medical/Surgical History Hx Asthma: Yes Hx Chronic Respiratory Disease: Yes Hx Diabetes: No Hx Cardiac Disease: No Hx Renal Disease: No Hx Cirrhosis: No Hx Alcoholism: No Hx HIV/AIDS: No Hx Splenectomy or Spleen Trauma: No Other PMH: sick sinus syn, sciatica, GERD, a fib, sleep apnea, diverticulitis, arthritis, asthma, RAD. appy, tonsilectomy, knee surg, gall bladder, ortho surg , pacemaker - Social History Smoking Status: Never smoked Constitutional: Initial Vital Signs Temperature (C) 98.2 F 12/19/16 19:09 Heart Rate 145 H 12/19/16 19:09 Respiratory Rate 18 12/19/16 19:09 Blood Pressure 107/81 H 12/19/16 19:09 O2 Sat (%) 96 12/19/16 19:09 O2 Delivery Mode Room Air Allergies/Adverse Reactions: adhesive tape [Adhesive Tape] Allergy (Severe, Verified 10/05/15 10:02) BLISTERS iohexol [From Omnipaque 140] Allergy (Severe, Verified 10/05/15 10:02) IV CONTRAST/ HIVES Home Medications: Medication Instructions Recorded LORazepam [Ativan (*)] 0.5 - 1 mg PO HS PRN 01/02/13 Acetaminophen [Tylenol 325mg (*)] 325 mg PO DAILY PRN 12/12/16 Albuterol [Proventil Inhaler HFA 1 - 2 puffs IH DAILY PRN 12/12/16 (*)] Aspirin [Aspirin 81mg (*)] 162 mg PO HS 12/12/16 Cholecalciferol Vit D3 [Vitamin D3 2,000 units PO DAILY 12/12/16 2000 units tab (OTC)] Glucosamine/Chondroitin 1 each PO DAILY 12/12/16 [Glucosamine/Chondroitin (*)] Herbals/Supplements -Info Only 1 ea PO DAILY 12/12/16 Latanoprost 0.005% [Xalatan 0.005% 1 drops EACHEYE HS 12/12/16 (*)] Metoprolol Succinate Xr [Toprol Xl 50 mg PO DAILY 12/12/16 50 mg (*)] Pantoprazole Sodium [Protonix 40mg 40 mg PO DAILY 12/12/16 (*)] Amiodarone HCl [Pacerone (*)] 200 mg PO BID #0 tab 12/17/16 Amoxicillin 2,000 mg PO ONCE PRN #0 capsule 12/17/16 Apixaban [Eliquis] 2.5 mg PO BID #0 tab 12/17/16 Furosemide [Lasix 40 MG (*)] 40 mg PO BID 30 Days 12/17/16 Metoprolol Tartrate 25 mg PO ONCE #0 tablet 12/17/16 Potassium Cl [Klor-Con 20 meq (*)] 20 meq PO BID #0 tab 12/17/16 Medical Decision Making - Data Points Laboratory Results: Laboratory Results 12/19/16 19:02 12/19/16 19:02 12/19/16 12/19/16 12/19/16 19:02 19:02 19:02 WBC RBC Hgb Hct MCV MCH MCHC RDW Plt Count MPV Neut % (Auto) Lymph % (Auto) Pitkin % (Auto) Eos % (Auto) Baso % (Auto) Nucleat RBC Rel Count Absolute Neuts (auto) Absolute Lymphs (auto) Absolute Monos (auto) Absolute Eos (auto) Absolute Basos (auto) Absolute Nucleated RBC Immature Gran % Immature Gran # PT INR Sodium 139 mEq/L mEq/L (134-144) Potassium 4.3 mEq/L mEq/L (3.5-5.2) Chloride 101 mEq/L mEq/L (97-110) Carbon Dioxide 29 mEq/l mEq/l (22-31) Anion Gap 9 mEq/L mEq/L (8-16) BUN 19 mg/dL mg/dL (7-23) Creatinine 0.7 mg/dL mg/dL (0.6-1.0) Estimated GFR > 60 Glucose 155 mg/dL H mg/dL (70-100) Calcium 9.6 mg/dL mg/dL (8.5-10.4) Ammonia < 9.0 uMOL/L L uMOL/L (9.0-30.0) Troponin I 0.084 ng/mL H ng/mL (0-0.034) NT-Pro-B Natriuret Pep 3840 pg/mL H pg/mL (0-450) 12/19/16 12/19/16 19:02 19:02 WBC 10.56 10^3/uL H 10^3/uL (3.80-9.50) RBC 3.33 10^6/uL L 10^6/uL (4.18-5.33) Hgb 10.7 g/dL L g/dL (12.6-16.3) Hct 32.3 % L % (38.0-47.0) MCV 97.0 fL fL (81.5-99.8) MCH 32.1 pg pg (27.9-34.1) MCHC 33.1 g/dL g/dL (32.4-36.7) RDW 13.5 % % (11.5-15.2) Plt Count 261 10^3/uL 10^3/uL (150-400) MPV 10.3 fL fL (8.7-11.7) Neut % (Auto) 76.9 % H % (39.3-74.2) Lymph % (Auto) 11.7 % L % (15.0-45.0) Pitkin % (Auto) 9.3 % % (4.5-13.0) Eos % (Auto) 1.3 % % (0.6-7.6) Baso % (Auto) 0.4 % % (0.3-1.7) Nucleat RBC Rel Count 0.0 % % (0.0-0.2) Absolute Neuts (auto) 8.12 10^3/uL H 10^3/uL (1.70-6.50) Absolute Lymphs (auto) 1.24 10^3/uL 10^3/uL (1.00-3.00) Absolute Monos (auto) 0.98 10^3/uL H 10^3/uL (0.30-0.80) Absolute Eos (auto) 0.14 10^3/uL 10^3/uL (0.03-0.40) Absolute Basos (auto) 0.04 10^3/uL 10^3/uL (0.02-0.10) Absolute Nucleated RBC 0.00 10^3/uL 10^3/uL (0-0.01) Immature Gran % 0.4 % % (0.0-1.1) Immature Gran # 0.04 10^3/uL 10^3/uL (0.00-0.10) PT 18.0 SEC H SEC (12.0-15.0) INR 1.49 H (0.83-1.16) Sodium Potassium Chloride Carbon Dioxide Anion Gap BUN Creatinine Estimated GFR Glucose Calcium Ammonia Troponin I NT-Pro-B Natriuret Pep Medications Given: Discontinued Medications Metoprolol Tartrate (Lopressor Injection) 5 mg IVP EDNOW ONE Stop: 03/07/17 19:51 Last Admin: 12/19/16 20:20 Dose: 5 mg Departure - Departure Disposition: [facility] Acute Clinical Impression: Cerebral edema, Encephalopathy acute, Atrial fibrillation with RVR Condition: Good
[2016-12-19 19:28] LABS: ANION GAP 9 mEq/L (8-16); CALCIUM 9.6 mg/dL (8.5-10.4); CARBON DIOXIDE 29 mEq/l (22-31); CHLORIDE 101 mEq/L (97-110); CREATININE 0.7 mg/dL (0.6-1.0); GLOMERULAR FILTRATION RATE > 60; GLUCOSE 155 mg/dL (70-100); INR 1.49 (0.83-1.16); POTASSIUM 4.3 mEq/L (3.5-5.2); SODIUM 139 mEq/L (134-144)
[2016-12-19 19:40] LABS: TROPONIN I 0.084 ng/mL (0-0.034)
--- NOTE | 2016-12-19 19:42 | CPEKG ---
Heart Rate: 132 RR Interval: 455 QRSD Interval: 76 QT Interval: 264 QTC Interval: 391 QRS Currie: 23 T Wave Currie: 260 EKG Severity - ABNORMAL ECG - EKG Impression: ATRIAL FIBRILLATION, V-RATE 87-160 EKG Impression: LOW VOLTAGE IN FRONTAL LEADS EKG Impression: NONSPECIFIC T ABNORMALITIES, DIFFUSE LEADS Electronically Signed By: Kevin Liu 19-Dec-2016 23:04:11
[2016-12-19] MEDS ORDERED: AMIODARONE HCL 150 MG/3 ML VIAL IV ONE (19:45)
[2016-12-19] MEDS ORDERED: METOPROLOL TARTRATE 5 MG/5 ML INJ IVP ONE (19:50)
[2016-12-19] MEDS ORDERED: ONDANSETRON 4 MG/2 ML VIAL IVP PRN (21:03)
[2016-12-19] MEDS ORDERED: ONDANSETRON DISINTEGRATING 4 MG TAB PO PRN (21:03)
[2016-12-19] MEDS ORDERED: ACETAMINOPHEN 325 MG TAB PO PRN (21:03)
[2016-12-19] MEDS ORDERED: FUROSEMIDE 40 MG/4 ML VIAL IVP ONE (21:05)
[2016-12-19] MEDS ORDERED: ASPIRIN 81 MG CHEWABLE TAB PO SCH (21:30)
[2016-12-19] MEDS ORDERED: ASPIRIN 81 MG CHEWABLE TAB PO ONE (22:00)
[2016-12-19] MEDS: DILTIAZEM 125 MG in D5W 125 ML IV SCH (22:06)
--- NOTE | 2016-12-19 22:08 | GHP ---
DATE OF ADMISSION: 12/19/2016 HISTORY OF PRESENT ILLNESS: The patient is a very pleasant 81-year-old female who was discharged from the hospital 2 days ago, status post an aortic valve replacement with a bovine aortic valve. She was discharged on Eliquis. She has a long-standing history of atrial fibrillation and has had a number of ablations in the past which appear to have been unsuccessful. She was discharged to [facility]. She received 1 mg of Ativan overnight on consecutive nights. Previously, she had taken Ativan about 3 times a year at 0.5 mg dose for sleep. This morning she was noted to be a "little out of it" and may be having some difficulty speaking, and just not being herself. She cleared somewhat through the day, and when I speak with her, is somewhat conversant. She was referred to the emergency department out of concern for stroke at her son's request. When I speak with her, she denies focal numbness or weakness. She is able to speak fluently and name objects and follow commands. She did not have a previous history of stroke. She does have a remote pacemaker placement. She is unaware of which kind. She has it on a card in her wallet which she does not have with her. She denies recent fever, chills, urgency, frequency or dysuria. REVIEW OF SYSTEMS: Complete 10-point review of systems conducted and negative except as noted in the HPI. PAST MEDICAL HISTORY: 1. Receent aortic valve replacement for aortic stenosis. 2. Atrial fibrillation. 3. Hypertension. 4. Reactive airway disease. ALLERGIES: Adhesive tape and iohexol/Omnipaque 140. HOME MEDICATIONS: On reconciled list includes Ativan, potassium, Protonix, Toprol-XL, latanoprost, lorazepam, glucosamine, chondroitin, Lasix, vitamin D3, aspirin, apixaban, amoxicillin, amiodarone, albuterol, acetaminophen. SOCIAL HISTORY: She lives independently. She is retired. Currently at [facility]. Minimal alcohol. No tobacco. FAMILY HISTORY: Son is healthy, at the bedside. PHYSICAL EXAMINATION: VITAL SIGNS: Blood pressure 107/81, pulse 145, breathing 18 times a minute, 96% on room air. Afebrile at 36.8. GENERAL: No acute distress. HEENT: Sclerae anicteric. Oropharynx clear. Mucous membranes moist. NECK: Supple without lymphadenopathy or JVD. LUNGS: Clear to auscultation bilaterally. HEART: S1, S2 without significant murmurs. Her midline incision is rather small, clean, dry and intact without fluctuance or erythema or drainage. ABDOMEN: Soft, nontender, nondistended. EXTREMITIES: Lower extremities show trace edema bilaterally. Calves nontender. SKIN: Without rash. NEUROLOGIC: Cranial nerves 2-12 are intact. Upper extremity and lower extremity strength is 5/5 bilaterally. Cerebellar testing intact. Sensation is intact bilaterally. I did not test her gait. LABORATORY DATA: Sodium 139, potassium 4.3, chloride 101, bicarb 29, BUN 19, creatinine 0.7, glucose 155. Troponin 0.084. Ammonia less than 9. BNP is 3840. White count 10.6, hematocrit 32, platelets 261,000. INR is 1.5. Chest x -ray, interpreted by me, shows midline sternotomy, small bilateral pleural effusions, left greater than right. Pacemaker in place. Dual leads. EKG, interpreted by il, shows AFib, low voltage 132, normal axis and intervals. Diffuse flat T's. Noncontrast head CT: Loss of perez-white differentiation in the right parietal lobe suggesting acute/subacute infarct, diffuse cerebral atrophy, possible right maxillary sinusitis. I discussed the case with ASHOK Emanuel, in the emergency department. ASSESSMENT AND PLAN: An 81-year-old female, postop day about 5 after aortic valve replacement, who presents with transient encephalopathy in the setting of Ativan usage and CAT scan concerning for possible stroke. 1. Question stroke. I believe the patient has not had a neurovascular event on the basis of her symptoms. I think her transient encephalopathy, which appears to be clearing, is most consistent with the Ativan that she received. It would be prudent to get an MRI. The patient would like to hold off and see if she is "herself" tomorrow before proceeding with MRI. She is not a candidate for lytics for a number reasons, including timing and recent surgical procedure. The patient takes an anticoagulant. It would be reasonable to add aspirin. We will check a lipid panel in the morning. The patient does not need a bedside swallow evaluation. She is swallowing fine. Echocardiogram has been ordered by CT Surgery. 2. Atrial fibrillation, rapid. She is currently on Eliquis. She probably has long-standing indication for anticoagulation. I think the patient has volume overload that may be driving this. I will give her dose of Lasix. Tamponade has been considered, and I feel that at this point, based on her chest x-ray and other findings, it is unlikely that she has tamponade. 3. I will start her on a diltiazem drip. She used to use some amiodarone with no effect. 4. Prophylaxis, therapeutically anticoagulated. 5. Code: Full. DISPOSITION: Inpatient status. /[id number]/MODL MTDD
[2016-12-20 05:21] LABS: CHOLESTEROL 98 mg/dL (140-220); HIGH DENSITY LIPOPROTEIN 28 mg/dL (40-85); LDL/HDL RATIO 1.96 RATIO (1.00-3.22); LOW DENSITY LIPOPROTEIN 55 mg/dL (80-100); TRIGLYCERIDE 76 mg/dL (35-135); VERY LOW DENSITY LIPOPROTEINS 15 mg/dL (8-25)
[2016-12-20 05:22] LABS: NON-HIGH DENSITY LIPOPROTEIN 70 mg/dL (90-129)
[2016-12-20] MEDS: FUROSEMIDE 40 MG TAB PO SCH ×2 (08:30→14:13)
[2016-12-20 08:57] LABS: HEMOGLOBIN A1C 5.1 % (4.0-6.0)
[2016-12-20] MEDS ORDERED: APIXABAN 2.5 MG TAB PO SCH (09:00)
[2016-12-20] MEDS ORDERED: AMIODARONE HCL 200 MG TAB PO SCH (09:00)
[2016-12-20] MEDS ORDERED: POTASSIUM CL 20 MEQ TAB PO SCH (09:00)
[2016-12-20] MEDS ORDERED: CHOLECALCIFEROL VIT D3 2,000 UNITS TAB/CAP PO SCH (09:00)
[2016-12-20] MEDS ORDERED: METOPROLOL SUCCINATE XR 50 MG TAB PO SCH (09:00)
[2016-12-20] MEDS ORDERED: GLUCOSAMINE SULF 500 MG CAP PO SCH (09:00)
[2016-12-20] MEDS ORDERED: PANTOPRAZOLE SODIUM 40 MG TAB PO SCH (09:00)
[2016-12-20] MEDS: DILTIAZEM 125 MG in D5W 125 ML IV SCH (09:26)
[2016-12-20] MEDS ORDERED: AMIODARONE HCL 100 ML IV ONE (09:40)
[2016-12-20] MEDS ORDERED: DILTIAZEM CD 120 MG CAP PO SCH (10:00)
--- NOTE | 2016-12-20 11:18 | HOSPPROG ---
Hospitalist Progress Note Assessment/Plan: #Acute on Chronic Afib: -Rate better controlled with the addition of Diltiazem -Continue Amiodarone and Metoprolo -Will need to monitor BP as slight hypotension after starting Diltiazem -On Eliquis and Aspirin #Recent AVR -On Eliquis and Aspirin #Volume overload and ?CHF (she is on home Lasix dosing) -She had increased volume overload on admission and was given IV Lasix -Now appears Euvolemic -continue with Home Lasix dose and monitor overnight #Question Stroke: She likely did not have a stroke. She likely had transient Encephalopathy due to Ativan dosing. -Negative CT -No current indication for obtaining an MRI -Continue with AC and aspirin -Lipid panel at goal -Avoid overuse of narcotics and benzos #HTN/Hypotension: per above, will monitor overnight #Generalized weakness and deconditioning: per the pt and her son they do not want to return back to SNF. They want to discharge home. PT/OT to eval to determine home safety. #Dispo: anticipate discharge in 1-2 days, possibly tomorrow S: Feels better No CP or SOB Breathing is better No palpitations Objective: Vital Signs Temp Pulse Resp BP Pulse Ox 36.9 C 83 20 105/70 96 12/20/16 08:27 12/20/16 10:51 12/20/16 08:27 12/20/16 10:51 12/20/16 08:27 12/19/16 12/20/16 12/21/16 05:59 05:59 05:59 Intake Total 280 Output Total 1100 Balance -820 PT 18.0 SEC (12.0-15.0) H 12/19/16 19:02 INR 1.49 (0.83-1.16) H 12/19/16 19:02 - Physical Exam Constitutional: no apparent distress, appears nourished, not in pain Eyes: PERRL, anicteric sclera, EOMI Ears, Nose, Mouth, Throat: moist mucous membranes Cardiovascular: regular rate and rhythym Respiratory: no respiratory distress, no rales or rhonchi, reduced air movement Gastrointestinal: normoactive bowel sounds, soft, non-tender abdomen, no palpable masses Skin: warm, normal color Musculoskeletal: generalized weakness Neurologic: AAOx3, No facial droop Psychiatric: interacting appropriately, not anxious, not encephalopathic, thought process linear ICD10 Worksheet Patient Problems: Problems Problem Status Onset Atrial fibrillation with RVR Acute Cerebral edema Acute Encephalopathy acute Acute Atrial fibrillation with rapid ventricular response Acute S/P AVR (aortic valve replacement) Acute Aortic stenosis, severe Chronic
[2016-12-20 11:25] LABS: COLOR YELLOW; LEUKOCYTE ESTERASE,URINE 1+ (NEGATIVE); NITRITE,URINE NEGATIVE (NEGATIVE)
[2016-12-20 12:00] LABS: BACTERIA 3+ /hpf (NONE SEEN); MUCUS TRACE /lpf (NONE-1+); WBC,URINE 25-50 /hpf (0-3)
--- NOTE | 2016-12-20 14:40 | PDIAF ---
- Diagnosis Diagnosis: AMS Code Status: Full Code - Medication Management Discharge Medications: Medications to Continue on Transfer Acetaminophen [Tylenol 325mg (*)] 650 mg PO DAILY PRN 12/12/16 [Last Taken 12/19 06:57] Aspirin [Aspirin 81mg (*)] 162 mg PO HS 12/12/16 [Last Taken 12/18/16] Cholecalciferol Vit D3 [Vitamin D3 2000 units tab (OTC)] 2,000 units PO DAILY [Last Taken 12/19/16] Latanoprost 0.005% [Xalatan 0.005% (*)] 1 drops EACHEYE HS 12/12/16 [Last Taken 12/18/16] Pantoprazole Sodium [Protonix 40mg (*)] 40 mg PO DAILY 12/12/16 [Last Taken 04/30] Amiodarone HCl [Pacerone (*)] 200 mg PO BID #0 tab 12/17/16 [Last Taken 17:00] Apixaban [Eliquis] 2.5 mg PO BID #0 tab 12/17/16 [Last Taken 12/19/16 17:00] Potassium Cl [Klor-Con 20 meq (*)] 20 meq PO BID #0 tab 12/17/16 [Last Taken 04/30 17:00] Furosemide [Lasix 40 MG (*)] 40 mg PO ,14 12/19/16 [Last Taken 12/19/16 14:00] Glucosamine Sulfate [Glucosamine Sulfate 500 MG (*)] 500 mg PO DAILY 12/19/16 [ Last Taken 12/19/16] Diltiazem Cd [Cardizem ER 120 MG (*)] 120 mg PO DAILY #0 cap 12/20/16 [Last Taken Unknown] Metoprolol Succinate Xr [Toprol Xl 50 mg (*)] 75 mg PO DAILY #0 tab 12/20/16 [ Last Taken Unknown] Discharge Medications: Refer to the Discharge Home Medication list for PRN reason. PICC Care - Routine: N/A - Orders Services needed: Registered Nurse, Certified [employer] Range Controller, Physical Therapy, Occupational Therapy Diet Recommendation: cardiac -low fat low salt, fluid restriction (use comment for amount) (2 Liters) Diet Texture: Regular Texture Diet Weigh Patient: daily Baeza: No Wound Care Instructions: Wash wounds daily with soap and water and leave open to air. Activity/Weight Bearing Restrictions: Sternal precautions x 4 weeks. Avoid lifting > 10lbs with an outstretched arm. Avoid push/pull activities. No driving for 2 weeks or until cleared by surgery. Additional: Call [employer] for overnight weight gain > 2lbs, weekly gain > 5lbs or worsening leg swelling. Call [employer] for resting heart rate > 120 or < 60 OR for systolic blood pressure consistently < 90 or > 140. - Follow Up Care Current Providers and Referrals: Gene Betts DO [Doctor of Osteopathy] - 12/26/16 11:45 am
[2016-12-20 14:57] VITALS: BP 87/49; PULSE 74; RESP 16; TEMP 98.2; O2SAT 96
--- NOTE | 2016-12-20 15:33 | PDDCSUM ---
Discharge Summary Discharge Summary: ADMISSION DATE: 12/19/16 DISCHARGE DATE: 12/20/16 ADMISSION DX: 1. Acute encephalopathy, r/o CVA 2. Rapid atrial fibrillation DISCHARGE DX: 1. Acute encephalopathy secondary to benzodiazepine 2. Rapid atrial fibrillation, resolved SECONDARY DX: 1. h/o Pacemaker implantation 2. h/o mini-AVR 3. Long-standing persistent atrial fibrillation with h/o multiple ablations HPI: 81F with recent AVR and discharge to [facility] with acute encephalopathy after receiving a larger than usual dose of lorazepam. HOSPITAL COURSE: The patients symptoms resolved upon arrival at [facility] ED. A CT of the head showed loss of perez-white differentiation in the right parietal lobe suggesting a sub- acute/acute stroke. Due to the fact that the patient received a larger dose of lorazepam than she was use to, and because her symptoms resolved, it was concluded that a stroke had not occurred. She was in rapid atrial fibrillation and diltiazem was started with good effect. The patient was cleared for discharged back to [facility] with some changes made to her medications. CONDITION Good DISPOSITION: [facility] ACTIVITY: Pt was instructed on sternal precautions, activity limitations, and which problems to call [facility] with. Please see Discharge Plan in chart for specifics. D/C MEDICATIONS: 1. Acetaminophen [Tylenol 325mg (*)] 650 mg PO DAILY PRN 2. Aspirin [Aspirin 81mg (*)] 162 mg PO HS 3. Cholecalciferol Vit D3 [Vitamin D3 2000 units tab (OTC)] 2,000 units PO DAILY 4. Latanoprost 0.005% [Xalatan 0.005% (*)] 1 drops EACHEYE HS 5. Pantoprazole Sodium [Protonix 40mg (*)] 40 mg PO DAILY 6. Amiodarone HCl [Pacerone (*)] 200 mg PO BID 7. Apixaban [Eliquis] 2.5 mg PO BID 8. Potassium Cl [Klor-Con 20 meq (*)] 20 meq PO BID 9. Furosemide [Lasix 40 MG (*)] 40 mg PO ,14 10. Glucosamine Sulfate [Glucosamine Sulfate 500 MG (*)] 500 mg PO DAILY 11. Diltiazem Cd [Cardizem ER 120 MG (*)] 120 mg PO DAILY 12. Metoprolol Succinate Xr [Toprol Xl 50 mg (*)] 75 mg PO DAILY PENDING STUDIES/LABS: 1. CXR 12/26/16 F/U APPOINTMENTS: 1. Dr. Gene Betts - 12/26/16, 11:[address] Rosa Escalera - to be arranged at surgical follow-up
[2016-12-20] MEDS ORDERED: LATANOPROST 0.005% 2.5 ML OPHT DROPS EACHEYE SCH (21:00)
[2016-12-20] MEDS ORDERED: ASPIRIN 81 MG CHEWABLE TAB PO SCH (21:00)
== END 2016-12-20 15:36 | DRG 92 ==
LOC: EDUNIT# → EEVIPCON 19:53 → F2W 21:15
PROVIDERS: ADMIT Internal Medicine; ATTEND Family Medicine
DX: G92 Toxic encephalopathy (principal); T42.4X5A Adverse effect of benzodiazepines, initial encounter; I48.1 Persistent atrial fibrillation; Z95.2 Presence of prosthetic heart valve; K21.9 Gastro-esophageal reflux disease without esophagitis; Z95.0 Presence of cardiac pacemaker; I10 Essential (primary) hypertension
CPT/HCPCS: 92523-GN; 96374; 97162-GP; 97166-GO; G8978-GP-CJ; G8979-GP-CI; G8987-GO-CJ; G8988-GO-CI; G9168-GN-CH; G9169-GN-CH; G9170-GN-CH; J0282

== ENCOUNTER → 2016-12-26 | Outpatient (CLI) | payer OTHER | LOC: FIMAGING 11:09 | PROVIDERS: ATTEND Thoracic Surgery (Cardiothoracic Vascular Surgery) | DX: Z09 Encounter for follow-up examination after completed treatment for conditions other than malignant neoplasm (principal); Z95.2 Presence of prosthetic heart valve; I51.7 Cardiomegaly; J90 Pleural effusion, not elsewhere classified ==

== ENCOUNTER → 2017-01-23 | Outpatient (CLI) | payer OTHER | LOC: FIMAGING 15:43 | PROVIDERS: ATTEND Internal Medicine Cardiovascular Disease | DX: L02.214 Cutaneous abscess of groin (principal) ==

== ENCOUNTER → 2017-02-01 | Outpatient (CLI) | payer OTHER ==
[~2017-02-01] MED LIST: LIDOCAINE 1% 30 ML SDV ONE; NA BICARBONATE 50 MEQ/50 ML VIAL ONE
[2017-02-01 18:41] LABS: BODY FLUID CELL COUNT OTHER BODY FLUID; BODY FLUID LD OTHER BODY FLUID; BODY FLUID PROTEIN OTHER BODY FLUID
== END ==
LOC: FIMAGING 13:58
PROVIDERS: ATTEND Internal Medicine Cardiovascular Disease
PROC: 0Y963ZX Drainage of Left Inguinal Region, Percutaneous Approach, Diagnostic (ICD-10-PCS; principal; 2017-02-01)
DX: L76.82 Other postprocedural complications of skin and subcutaneous tissue (principal)

== ENCOUNTER → 2017-09-14 | Outpatient (CLI) | payer OTHER | LOC: FIMAGING 14:13 | PROVIDERS: ATTEND Internal Medicine Hematology & Oncology | DX: Z12.31 Encounter for screening mammogram for malignant neoplasm of breast (principal); Z85.3 Personal history of malignant neoplasm of breast | CPT/HCPCS: G0202 ==

== ENCOUNTER 2018-07-05 13:56 | Inpatient (IN) | payer OTHER ==
--- NOTE | 2018-07-05 14:50 | EDPHY ---
H & P Time Seen by Provider: 07/05/18 14:50 HPI/ROS: CHIEF COMPLAINT: Headache for 13 days HISTORY OF PRESENT ILLNESS: 83-year-old woman on Eliquis for atrial fibrillation on a aortic valve presents with a headache for the last 13 days. She describes it as bilateral frontal and superior on her head occasionally associated with a visual disturbance which she describes as "my legs look like a van Gogh painting."She does not have ataxia or difficulty with balance or walking. No difficulty with speech. She has some associated generalized weakness but no specific weakness or numbness of any extremity. Was not thunderclap in onset, she has had 2 migraines in the last 22 years. Not associated with earache or sore throat or dental pain or recent injury or trauma or fall. No neck stiffness. No fever or chills. REVIEW OF SYSTEMS: Eye: HPI ENT: no sore throat Cardiac: no chest pain or syncope Pulmonary: no cough or SOB Abdomen: No vomiting or abdominal pain, she has been drinking more coffee because she thought caffeine which helped her headache and that she thinks is been causing some diarrhea. No melena. Musculoskeletal: no back pain or neck pain, no recent fall trauma or injury. Skin: no rash Neuro: HPI Constitutional: no fever : no urinary symptoms A comprehensive 10 point review of systems is otherwise negative aside from elements mentioned in the history of present illness. PAST MEDICAL HISTORY: Includes bovine aortic valve on Eliquis, pacemaker, atrial fibrillation, tubal ligation and cholecystectomy, left hip replacement, right knee surgery. Social history: Nonsmoker, asked to come here by Dr. Jett. General Appearance: Alert and conversant, cooperative. Eyes: No scleral icterus. Pupils equal reactive extraocular motion intact. No proptosis. ENT, Mouth: Normal mucous membranes. Hearing aids in place, no facial swelling. Otherwise normal pharynx. Respiratory: Normal respiratory effort, breath sounds equal, lungs are clear to auscultation. Cardiovascular: Regular rate and rhythm. 4-6 systolic murmur. Gastrointestinal: Abdomen is soft and non tender. Neurological: Alert, face symmetric, normal motor and sensory in extremities. [id number] normal, no pronator drift, fluent speech. She is hard of hearing which is the only abnormality. Skin: Warm and dry, no rashes. Musculoskeletal: No peripheral edema. No neck stiffness. Psychiatric: Not agitated. Emergency Department course/MDM: Patient had labs yesterday. She does not clinically appear to have any ENT infection, certainly intracranial hemorrhages in the differential. Noncontrast head CT ordered. 1555: CT shows subdural on the right side and additionally a right posterior temporoparietal subacute ischemic area consistent possibly with stroke per Dr. Snow. 1610: Results discussed with the patient, including reviewing the CT scan imaging with her on the computer system. Admit to hospitalist with both subdural and area of subacute ischemia per radiologist, Neurosurgery consultation. Smoking Status: Never smoked Constitutional: Initial Vital Signs Temperature (C) 37.1 C 07/05/18 14:09 Heart Rate 73 07/05/18 14:09 Respiratory Rate 16 07/05/18 14:09 Blood Pressure 140/80 H 07/05/18 14:09 O2 Sat (%) 95 07/05/18 14:09 O2 Delivery Mode Room Air Allergies/Adverse Reactions: adhesive tape [Adhesive Tape] Allergy (Severe, Verified 10/05/15 10:02) BLISTERS iohexol [From Omnipaque 140] Allergy (Severe, Verified 10/05/15 10:02) IV CONTRAST/ HIVES Home Medications: Medication Instructions Recorded Acetaminophen [Tylenol 325mg (*)] 650 mg PO DAILY PRN 12/12/16 Aspirin [Aspirin 81mg (*)] 162 mg PO HS 12/12/16 Cholecalciferol Vit D3 [Vitamin D3 2,000 units PO DAILY 12/12/16 2000 units tab (OTC)] Latanoprost 0.005% [Xalatan 0.005% 1 drops EACHEYE HS 12/12/16 (*)] Pantoprazole Sodium [Protonix 40mg 40 mg PO DAILY 12/12/16 (*)] Amiodarone HCl [Pacerone (*)] 200 mg PO BID #0 tab 12/17/16 Apixaban [Eliquis] 2.5 mg PO BID #0 tab 12/17/16 Potassium Cl [Klor-Con 20 meq (*)] 20 meq PO BID #0 tab 12/17/16 Glucosamine Sulfate [Glucosamine 500 mg PO DAILY 12/19/16 Sulfate 500 MG (*)] Metoprolol Succinate Xr [Toprol Xl 75 mg PO DAILY #0 tab 03/08/17 50 mg (*)] Medical Decision Making - Diagnostics Imaging Results: Imaging Impressions Head CT 07/05/18 14:59 Impression: 1. 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 2. Subacute ischemia involving the posterior right temporal parietal lobe. 3. Moderate diffuse bifrontal and biparietal white matter disease. Findings discussed with Emergency Department physician, Reagan Frederick on 07/05/2018 , 15:57. Imaging: Discussed imaging studies w/ house calls nurse practitioner Radiologist Differential Diagnosis: Differential diagnosis considered for headache including but not limited to subarachnoid hemorrhage, migraine headache, tension headache and infectious causes such as meningitis, pharyngitis and sinusitis. Consult/Admit Bed Type: [place] [id number], [facility] 1622 will consult Departure - Departure Disposition: [facility] [place] [facility] Acute Clinical Impression: Subdural hematoma, Ischemic stroke Condition: Serious Referrals: Paulina Simon, CR[employer]PER [employer]SEMBLER [Primary Care Provider] - As per Instructions
[2018-07-05] MEDS ORDERED: HYDROCODONE/APAP 5/325 TAB PO PRN (16:40)
[2018-07-05] MEDS ORDERED: ONDANSETRON DISINTEGRATING 4 MG TAB PO PRN (16:40)
[2018-07-05] MEDS ORDERED: ONDANSETRON 4 MG/2 ML VIAL IVP PRN (16:40)
--- NOTE | 2018-07-05 16:45 | PDGENHP ---
History and Physical - Chief Complaint headache - History of Present Illness 83-year-old woman on Eliquis for atrial fibrillation on a aortic valve presents with a headache for the last 13 days. She describes it as bilateral frontal and superior on her head occasionally associated with a visual disturbance which she describes as "my legs look like a van Gogh painting."She does not have ataxia or difficulty with balance or walking. No difficulty with speech. no focal deficits. She has some associated generalized weakness but no specific weakness or numbness of any extremity. Was not thunderclap in onset, she has had 2 migraines in the last 22 years. Not associated with earache or sore throat or dental pain or recent injury or trauma or fall. No neck stiffness. No fever or chills. 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 Social history: Nonsmoker FmHx: non contributory History Information - Allergies/Home Medication List Allergies/Adverse Reactions: adhesive tape [Adhesive Tape] Allergy (Severe, Verified 10/05/15 10:02) BLISTERS iohexol [From Omnipaque 140] Allergy (Severe, Verified 10/05/15 10:02) IV CONTRAST/ HIVES Home Medications: Aspirin [Aspirin 81mg (*)] 81 mg PO HS 12/12/16 [Last Taken 07/04/18] Cholecalciferol Vit D3 [Vitamin D3 2000 units tab (OTC)] 2,000 units PO DAILY [Last Taken 07/05/18] Latanoprost 0.005% [Xalatan 0.005% (*)] 1 drop EACHEYE HS 12/12/16 [Last Taken 07/04/18] Pantoprazole Sodium [Protonix 40mg (*)] 40 mg PO DAILY 12/12/16 [Last Taken ] Acetaminophen [Tylenol ES 500 mg (*)] 500 mg PO Q6 PRN 07/05/18 [Last Taken 07:30] Apixaban [Eliquis] 5 mg PO BID 07/05/18 [Last Taken 07/05/18 07:30] Herbals/Supplements -Info Only 1 ea PO DAILY 07/05/18 [Last Taken 07/05/18] LORazepam [Ativan (*)] 0.5 - 1 mg PO HS 07/05/18 [Last Taken 07/04/18] Metoprolol Succinate Xr [Toprol Xl 100 mg (*)] 100 mg PO HS 07/05/18 [Last Taken 07/04/18] [place]-3 Fatty Acids [Fish Oil 1000 mg (*)] 1,000 mg PO BID 07/05/18 [Last Taken 07/05/18 09:00] S-Adenosylmethionine Sul Tosyl [Yobany-E] 400 mg PO DAILY@12 07/05/18 [Last Taken 07/05/18] I have personally reviewed and updated: medical history, social history - Social History Smoking Status: Never smoked Review of Systems Review of Systems: ROS: 10pt was reviewed & negative except for what was stated in HPI & below Physical Exam Physical Exam: Temp Pulse Resp BP Pulse Ox 37.1 C 73 16 140/80 H 95 07/05/18 14:09 07/05/18 14:07/05/18 14:07/05/18 14:09 07/05/18 14:09 Constitutional: no apparent distress Eyes: PERRL Ears, Nose, Mouth, Throat: moist mucous membranes, hearing normal Cardiovascular: regular rate and rhythym, No edema Respiratory: no respiratory distress, no rales or rhonchi Gastrointestinal: normoactive bowel sounds, soft, non-tender abdomen Skin: warm Musculoskeletal: full muscle strength, No generalized weakness Neurologic: AAOx3, sensation intact bilaterally, weakness, CN II-XII Intact, No facial droop Psychiatric: interacting appropriately, not anxious, not encephalopathic Lymph, Heme, Immunologic: no cervical LAD, No petechiae Lab Data & Imaging Review 07/05/18 16:30 07/05/18 16:30 Assessment & Plan Assessment: #possible Ischemic stroke (Acute) #Subdural hematoma (Acute) #JENSEN #chronic AC #hx of Afib and hx of AVR-bovine #Hx of SSS s/p PPM #HLD Admission NS consult will consult neurology hold Aspirin Hold Eliquis her pacemaker is not compatible with MRI telemetry, tte check a1c start statin home meds as appropriate
[2018-07-05 16:49] LABS: PLATELET COUNT 292 10^3/uL (150-400)
[2018-07-05 17:06] LABS: INR 1.05 (0.83-1.16); PROTIME(PATIENT) 13.9 SEC (12.0-15.0)
[2018-07-05] MEDS: ATORVASTATIN CALCIUM 20 MG TAB PO SCH (18:33)
[2018-07-05] MEDS: METOPROLOL SUCCINATE XR 100 MG TAB PO SCH (21:23)
[2018-07-05] MEDS: OMEGA-3 FATTY ACIDS 1,000 MG CAP PO SCH (21:24)
[2018-07-05] MEDS: LATANOPROST 0.005% 2.5 ML OPHT DROPS EACHEYE SCH (21:27)
[2018-07-05] MEDS: LORazepam 1 MG TAB PO SCH (21:59)
[2018-07-06] MEDS: ACETAMINOPHEN 325 MG TAB PO PRN ×2 (00:23→09:52)
[2018-07-06] MEDS: LORazepam 1 MG TAB PO SCH (01:54)
[2018-07-06 04:48] LABS: PLATELET COUNT 255 10^3/uL (150-400)
--- NOTE | 2018-07-06 08:14 | SOAPPROG ---
SOAP Progress Note Assessment/Plan: Assessment: 83 yo F with right sided subacute subdural hematoma Plan: stable will check repeat head ct this am PT/OT/ST Q2 hour neuro checks, if CT stable then Q4 hour neuro checks ok will start tranexamic acid please call with neuro changes discussed with Dr Cruz 07/06/18 08:11 Subjective: continued headaches, no N/V. Objective: Vital Signs Temp Pulse Resp BP Pulse Ox 36.6 C 76 14 125/97 H 100 07/06/18 07:49 07/06/18 07:49 07/06/18 07:49 07/06/18 07:49 07/06/18 07:49 Laboratory Results 07/06/18 04:40 07/06/18 04:40 07/05/18 07/06/18 07/07/18 05:59 05:59 05:59 Intake Total 700 Balance 700 PT 13.9 SEC (12.0-15.0) 07/05/18 16:30 INR 1.05 (0.83-1.16) 07/05/18 16:30 AAOx4, +FC PERRL, EOMI, no facial droop CARO x4 + light touch ICD10 Worksheet Patient Problems: Problems Problem Status Onset Ischemic stroke Acute Subdural hematoma Acute Atrial fibrillation with RVR Acute Atrial fibrillation with rapid ventricular response Acute Cerebral edema Acute Encephalopathy acute Acute S/P AVR (aortic valve replacement) Acute Aortic stenosis, severe Chronic
[2018-07-06] MEDS ORDERED: Herbals/Supplements -Info Only PO SCH (09:00)
--- NOTE | 2018-07-06 09:32 | PDMN ---
Medical Necessity Medical necessity: [facility] M83 ischemic stroke and MGN Neurology GR83 y/o w/ poss acute ischemic stroke, R subacute subdural hematoma, pt c/o H/A and visual disturbances, neurology and neurosurgery consults.
[2018-07-06] MEDS: OMEGA-3 FATTY ACIDS 1,000 MG CAP PO SCH ×2 (09:49→21:22)
[2018-07-06] MEDS: ATORVASTATIN CALCIUM 20 MG TAB PO SCH (09:49)
[2018-07-06] MEDS: TRANEXAMIC ACID 650 MG TAB PO SCH ×3 (09:49→21:22)
[2018-07-06] MEDS: CHOLECALCIFEROL VIT D3 2,000 UNITS TAB/CAP PO SCH (09:49)
[2018-07-06] MEDS: PANTOPRAZOLE SODIUM 40 MG TAB PO SCH (09:49)
--- NOTE | 2018-07-06 10:21 | NEUROPROG ---
Assessment: HOSPITAL NEUROLOGY CONSULT REQUESTING: Brenden Santos MD REASON: stroke HPI: 83 year old right-handed woman with a history of afib on apixaban/ASA, PPM, bovine aortic valve who presented to the ED yesterday with a headache. Patient states she developed a headache about 13 days ADVANCED PRACTICE RN manifest as bifrontal and occipital aching pain without nausea/vomiting, photophobia, neck stiffness. She states she woke with the JENSEN 13 days ADVANCED PRACTICE RN and it has gotten worse since then. She states she thought it might have been related to her glaucoma, but she went to her eyelet maker who said this was not the case. She eventually decided to come to the ED, as symptoms were not improving. She was not having any weakness, sensory change, speech/language change, vision loss. She did tell some providers she was having some visual distortions when looking at her legs, but she denies this to me. In the ED a CT head wo was done showing a mixed chronicity right hemispheric SDH of 8mm thickness with 2mm [id number] midline shift, and an area of wedge-shaped hypodensity in the right temporoparietal region concerning for a subacute infarct. She was admitted for further management. Neurosurgery has seen her and started her on tranexamic acid and her apixaban and ASA has been held. Today she still feels some JENSEN, but no other symptoms. She denies any head trauma, falls or other precipitating event for her SDH. ROS: As per the HPI, otherwise a complete 12 point ROS was performed and is negative ALLERGIES AND MEDS: As recorded in the EMR - reviewed and reconciled PFSH: As per the intake H&P by Dr. Santos from yesterday EXAM: VS reviewed in EMR GEN: WDWN laying in NAD HEENT: NCAT, sclera anicteric, conjunctiva not injected, MMM, oropharynx clear, no scalp tenderness NECK: supple, nontender, no meningismus CV: RRR s1 s2 wo m/r/c/g. Carotid pulses 2+ wo bruit NEURO: MS: awake, alert, oriented to all spheres. Speech nondysarthric. No language disturbance. Follows commands. Attends to both sides. Recent/remote memory grossly intact. Mood euthymic. Good fund of knowledge. CN: pupils 3mm round and reactive. Unable to visualize fundi. VFF. Primary gaze centered. Full ocular motility. Facial sensation preserved. Face symmetric. Hearing grossly intact to finger rub. Palatoglossal movements intact. Shoulder shrug and head turn strong. MOTOR: normal bulk/tone. No adventitial movements. Full power throughout. SENSORY: intact to all modalities throughout. No extinction. COORD: no ataxia FN/HS. Efrain preserved. REFLEX: plantars down. No clonus. Absent ankle jerks, patellars 1/4, BUE DTRS 2/4. GAIT: deferred to PT safety eval DATA REVIEW: Labs reviewed in EMR A1c 5.4 TTE pending Carotid Doppler shows no hemodynamically significant stenosis of the BICAs and antegrade flow in the vertebral arteries PERSONALLY INTERPRETED RESULTS AND DATA: CT head wo - as per the HPI IMPRESSION AND RECOMMENDATIONS: // SDH // ISCHEMIC STROKE // AFIB // THERAPEUTIC AC // BOVINE AORTIC VALVE Patient with JENSEN and evidence of right hemispheric spontaneous SDH likely provoked by apixaban/ASA. She has no clinical deficits from her ischemic stroke evident on CT. Stroke may have been from vascular compression related to her SDH, proximal embolism from afib (less likely since she has been on AC/ASA), symptomatic intracranial stenosis. She cannot have an MRI due to her PPM and she cannot have CTA due to iodinated contrast allergy. At this point I agree with holding AC and ASA. It would be reasonable to restart ASA once stability/improvement in the SDH has been demonstrated and declared by neurosurgery. However, given the spontaneous bleed on apixaban, she would not be a candidate for reinstitution of AC. I think the best course of secondary stroke prevention would be to have her consult with our structural librarian specialist, Dr. Butler, for consideration of JARRETT occlusion procedure once she is discharged. Continue with conventional vascular risk factor optimization by adding statin for goal LDL < 70 (please check lipids to assess intensity of therapy needed), maintaining normoglycemia (A1c 5.4), maintaining normotension and intervening for SBPs > 160. TTE is pending. PT/OT/OPTICAL LENS MANUFACTURING TECH consults, stroke education. Cont to monitor on tele. Will sign off. Recall PRN. Objective: Vital Signs Temp Pulse Resp BP Pulse Ox 36.6 C 76 14 125/97 H 100 07/06/18 07:49 07/06/18 07:49 07/06/18 07:49 07/06/18 07:49 07/06/18 07:49 Laboratory Results 07/06/18 04:40 07/06/18 04:40 07/05/18 07/06/18 07/07/18 05:59 05:59 05:59 Intake Total 700 Balance 700 PT 13.9 SEC (12.0-15.0) 07/05/18 16:30 INR 1.05 (0.83-1.16) 07/05/18 16:30 Allergies/Adverse Reactions: adhesive tape [Adhesive Tape] Allergy (Severe, Verified 10/05/15 10:02) BLISTERS iohexol [From Omnipaque 140] Allergy (Severe, Verified 10/05/15 10:02) IV CONTRAST/ HIVES
[2018-07-06] MEDS ORDERED: oxyCODONE IR 5 MG TAB PO PRN ×2 (11:20→18:06)
[2018-07-06] MEDS ORDERED: ACET/CAFFEINE/BUTA FIORICET 1 EACH TAB PO PRN (11:20)
--- NOTE | 2018-07-06 12:49 | ECHO ---
[email or web address] [address] [address] Main: [phone] Fax: Transthoracic Echocardiogram Name: CHRISTOPHE MARC MR#: [id number] Study Date: 07/06/2018 Study Time: 09:48 AM Date of : 1935 Age: 83 year(s) Height: 165.1 cm (65 in.) Weight: 72.58 kg (160 lb.) BSA: 1.8 m2 Gender: Female Examination: Indication: Cerebrovascular: prior CVA, Brain Bleed, Hx of Bovine Aortic Valve, Pacemaker Image Quality: Contrast: Requested by: Brenden Santos BP: 125 mmHg/97 mmHg Heart Rate: Rhythm: Normal sinus rhythm Indication: Cerebrovascular: prior CVA, Brain Bleed, Hx of Bovine Aortic Valve, Pacemaker Procedure Staff Vice President Investor Relations: Teo Barker RDCS Reading Physician: Dirk Fung MD Requesting Provider: Conclusions: Normal size left ventricle. Mild concentric LV hypertrophy. Normal systolic LV function with paradoxic septal motion suggestive of bundle branch block, paced cardiac rhythm, or prior cardiac surgery. . EF is 64 %. Normal size right ventricle. Normal RV function. The left atrium is normal in size. An agitated saline study was performed and was negative for intracardiac shunting. The right atrium is normal in size. The aortic valve is a bioprosthesis. Normal functioning aortic valve prosthesis. The prosthetic aortic valve is normal. No prosthesis stenosis. The Aortic Valve Mean PG is 17 mmHg with a Av Vmax of 2.7cm.. Mild tricuspid regurgitation is present. The pulmonary artery pressure is moderately increased. Right ventricular systolic pressure measures 53mmHg. No pericardial effusion. Measurements: Chambers Valvular Assessment AV/MV Valvular Assessment TV/PV Normal Normal Normal Name Value Range Name Value Range Name Value Range Ao Kathryn (MM): 2.8 cm (2.2 cm-3.7 AV Vmax: 2.73 m/s (1 m/s-1.7 TR Vmax: 3.47 mm/s ( - ) cm) m/s) TR PGmax: 48 mmHg ( - ) IVSd (2D): 1.1 cm (0.6 cm-1.1 AV maxP mmHg ( - ) syst. PAP: 53 mmHg ( - ) cm) AV meanP mmHg ( - ) PV Vmax: 1.14 m/s (0.6 m/s-0.9 m/s) Patient: CHRISTOPHE MARC Study Date: 07/06/2018 Page 1 of 2 09:48 AM LVDd (2D): 4.2 cm (3.9 cm-5.3 LVOT Vmax: 0.84 m/s (0.7 m/s-1.1 PV PGmax: 5 mmHg ( - ) cm) m/s) LVDs (2D): 2.8 cm (2.1 cm-4 CAITLIN (Vmax): 0.9 cm2 ( - ) cm) CAITLIN (VTI): 0.9 cm ( - ) LVPWd (2D): 1.1 cm ( - ) MV E Vmax: 1.09 m/s ( - ) LVOTd 1.9 cm 1.9 cm mm MV A Vmax: 0.50 m/s ( - ) LVEF (2D): 64 (>=54 %) MV E/A: 2.18 ( - ) Continued Measurements: Chambers Valvular Assessment AV/MV Valvular Assessment TV/PV Name Value Name Value Name Value LADs Lon.2 cm MV E' Septal: 0.03 m/s CVP (est.): 5 mmHg LA Area: 18.0 cm2 MV E/E' Septal: 34.10 LA Volume: 50 ml MV E/E' Lateral: 18.60 LA Volume Index: 27.8 ml/m2 Findings: Left Ventricle: Normal size left ventricle. Mild concentric LV hypertrophy. Normal systolic LV function with paradoxic septal motion suggestive of bundle branch block, paced cardiac rhythm, or prior cardiac surgery. . EF is 64 %. No regional wall motion abnormality. Diastolic dysfunction is present. . Right Ventricle: Normal size right ventricle. Normal RV function. There is a pacemaker lead noted in the right ventricle. Left Atrium: The left atrium is normal in size. An agitated saline study was performed and was negative for intracardiac shunting. Right Atrium: The right atrium is normal in size. Mitral Valve: Mild mitral valve leaflet calcification is present. Moderate mitral annular calcification. Trivial mitral valve regurgitation. No mitral stenosis is present. Aortic Valve: The aortic valve is a bioprosthesis. Normal functioning aortic valve prosthesis. The prosthetic aortic valve is normal. No prosthesis stenosis. The Aortic Valve Mean PG is 17 mmHg with a Av Vmax of 2.7cm.. Tricuspid Valve: The tricuspid valve is normal in appearance and function. Mild tricuspid regurgitation is present. The pulmonary artery pressure is moderately increased. Right ventricular systolic pressure measures 53mmHg. Pulmonic Valve: The pulmonic valve is normal in appearance and function. Aorta: The aorta is normal. Pericardium: No pericardial effusion. (No Signature Object) Patient: CHRISTOPHE MARC Study Date: 07/06/2018 Page 2 of 2 09:48 AM [id number]
[2018-07-06] MEDS: S ADENOSYLMETHIONINE SUL TOSYL 400 MG PO SCH (14:34)
--- NOTE | 2018-07-06 15:19 | HOSPPROG ---
Hospitalist Progress Note Assessment/Plan: 83yo F with bioprosthetic aortic valve and atrial fibrillation on chronic anticoagulation with apixaban presented with 2 weeks of headaches found to have right sided subdural hematoma with right frontoparietal ischemic CVA. Fortunately, she is neurologically intact. #Spontaneous subdural hematoma: Repeat head CT this AM stable. - Neurosurg following, no plan for surgical intervention - Discontinued anticoagulation; would not advise restarting. Holding aspirin - Started on transexamic acid #Right ischemic CVA: Possibly related to compression from her SDH. Less likely cardioembolic as she was anticoagulated. Neurologically intact. Unable to get MRI due to pacemaker. - Q4h neuro checks - Telemetry - TTE without PFO or obvious thrombus - Defer restarting aspirin to neurosurgery - Started on statin - Goal normotension - Cleared by PT/OT/[employer] CORE LAYER for home #Atrial fibrillation: Rate controlled. - Continue metoprolol - Discontinued AC as above. Will need to consider JARRETT closure now that she had intracranial hemorrhage #Bioprosthetic AVR: Stable function/gradients on TTE. Euvolemic. #Headache: Related to SDH - [place], fioricet PRN #SSS s/p PPM Code: full Dispo: Remain inpatient for regular neuro checks, telemetry. Likely discharge to home tomorrow if no changes. Subjective: Had bad headache all morning that improved with norco. Denies weakness, numbness. Did well with therapies. Wondering when she can go home. Objective: Vital Signs Temp Pulse Resp BP Pulse Ox 36.8 C 72 14 104/65 96 07/06/18 14:31 07/06/18 14:31 07/06/18 14:31 07/06/18 14:31 07/06/18 14:31 Laboratory Results 07/06/18 04:40 07/06/18 04:40 07/05/18 07/06/18 07/07/18 05:59 05:59 05:59 Intake Total 700 560 Balance 700 560 PT 13.9 SEC (12.0-15.0) 07/05/18 16:30 INR 1.05 (0.83-1.16) 07/05/18 16:30 - Physical Exam Constitutional: no apparent distress, appears nourished, not in pain Eyes: PERRL, anicteric sclera, EOMI Ears, Nose, Mouth, Throat: moist mucous membranes, hearing normal, ears appear normal, no oral mucosal ulcers Cardiovascular: regular rate and rhythym, no murmur, rub, or gallop Respiratory: no respiratory distress, no rales or rhonchi, clear to auscultation Gastrointestinal: normoactive bowel sounds, soft, non-tender abdomen, no palpable masses Genitourinary: no bladder fullness, no bladder tenderness, no renal bruits Skin: no rashes or abrasions, no fluctuance, no induration Musculoskeletal: full muscle strength, no muscle tenderness, normal joint ROM Neurologic: AAOx3, sensation intact bilaterally, CN II-XII Intact, No weakness, No numbness Psychiatric: interacting appropriately, not anxious, not encephalopathic, thought process linear ICD10 Worksheet Patient Problems: Problems Problem Status Onset Ischemic stroke Acute Subdural hematoma Acute Atrial fibrillation with RVR Acute Atrial fibrillation with rapid ventricular response Acute Cerebral edema Acute Encephalopathy acute Acute S/P AVR (aortic valve replacement) Acute Aortic stenosis, severe Chronic
[2018-07-06] MEDS: METOPROLOL SUCCINATE XR 100 MG TAB PO SCH (21:22)
[2018-07-06] MEDS: LATANOPROST 0.005% 2.5 ML OPHT DROPS EACHEYE SCH (21:22)
[2018-07-06] MEDS ORDERED: HYDROCODONE/APAP 5/325 TAB PO PRN (21:42)
[2018-07-07] MEDS: LORazepam 1 MG TAB PO SCH (02:56)
[2018-07-07] MEDS: PANTOPRAZOLE SODIUM 40 MG TAB PO SCH (07:37)
[2018-07-07] MEDS: CHOLECALCIFEROL VIT D3 2,000 UNITS TAB/CAP PO SCH (07:37)
[2018-07-07] MEDS: OMEGA-3 FATTY ACIDS 1,000 MG CAP PO SCH (07:37)
[2018-07-07] MEDS: ATORVASTATIN CALCIUM 20 MG TAB PO SCH (07:38)
[2018-07-07] MEDS: TRANEXAMIC ACID 650 MG TAB PO SCH (07:38)
--- NOTE | 2018-07-07 12:05 | SOAPPROG ---
SOAP Progress Note Assessment/Plan: Assessment: 83 yo F with right sided subacute subdural hematoma Plan: stable and doing well overall epeat head ct 07/06 stabl PT/OT/ST pk to discharge home, follow up with Dr Cruz on tranexamic acid please call with neuro changes discussed with Dr Cruz 07/06/18 08:11 07/07/18 12:04 Subjective: headaches better, no N/V. No weakness. Objective: Vital Signs Temp Pulse Resp BP Pulse Ox 36.9 C 72 18 126/88 H 99 07/07/18 07:32 07/07/18 07:32 07/07/18 07:32 07/07/18 07:32 07/07/18 04:00 Laboratory Results 07/06/18 04:40 07/06/18 04:40 07/06/18 07/07/18 07/08/18 05:59 05:59 05:59 Intake Total 700 1390 Balance 700 1390 PT 13.9 SEC (12.0-15.0) 07/05/18 16:30 INR 1.05 (0.83-1.16) 07/05/18 16:30 AAOx4, +FC PERRL, EOMI, no facial droop 5/5 + light touch ICD10 Worksheet Patient Problems: Problems Problem Status Onset Ischemic stroke Acute Subdural hematoma Acute Atrial fibrillation with RVR Acute Atrial fibrillation with rapid ventricular response Acute Cerebral edema Acute Encephalopathy acute Acute S/P AVR (aortic valve replacement) Acute Aortic stenosis, severe Chronic
[2018-07-07] MEDS: S ADENOSYLMETHIONINE SUL TOSYL 400 MG PO SCH (12:07)
[2018-07-07 12:08] VITALS: BP 123/63
--- NOTE | 2018-07-07 17:16 | ASMTCMCOM ---
CM Note CM Note Notes: 83yr old female admitted for headache, spontaneous ICH, CVA, Severe aortic stenosis. She has a Hx of Bovine AV, Pacemaker and Afib. Seen by therapies and have been cleared by them to return home. She is up in the chair and anxious to return home. She feels as though she is at her baseline but wonders if she can drive. Encouraged her to visit her PCP and possibly return to out-pt therapy for a driving test. A friend to transport her home. Date Signed: 07/07/2018 05:15 PM Electronically Signed By:Radha Dietz LCSW
--- NOTE | 2018-07-07 17:20 | ASDISCHSUM ---
Discharge Information Plan Status:Home with No Needs Medically Cleared to Leave:07/07/2018 Discharge Date:07/07/2018 01:15 PM CM D/C Disposition:Home, Routine, Self-Care ADT D/C Disposition:Home, Routine, Self-Care Projected Discharge Date:07/07/2018 01:00 PM Transportation at D/C:Friend Discharge Delay Reason: Follow-Up Date:07/07/2018 01:00 PM Discharge Slot:2 - 12:01 pm - 18:00 pm Final Diagnosis:R SDH Placement Information Patient Contact Information Contact Name:LEOBARDO Relationship:Daughter Address: City: [facility] Phone: [facility]/[place] Code: Email: Financial Information Financial Class:Medicare Primary Plan Desc:MEDICARE INPATIENT Primary Plan Number:[id number] Secondary Plan Desc:GISELA VILLANUEVANITY Secondary Plan Number:[id number] Assessment Information BC CM Progress Note CM Note CM Note Notes: 83yr old female admitted for headache, spontaneous ICH, CVA, Severe aortic stenosis. She has a Hx of Bovine AV, Pacemaker and Afib. Seen by therapies and have been cleared by them to return home. She is up in the chair and anxious to return home. She feels as though she is at her baseline but wonders if she can drive. Encouraged her to visit her PCP and possibly return to out-pt therapy for a driving test. A friend to transport her home. Date Signed: 07/07/2018 05:15 PM Electronically Signed By:Radha Dietz LCSW LACE LACE Length of stay for Answers: 2 days current admission Acuity / Level of Answers: Yes Care: Did the patient have an inpatient admission? Comorbidities - select Answers: Cerebrovascular disease all that apply (CVA, TIA, aneurysms, vasc ular dementia) Other Notes: SDH, Aortic stenosis # of Emergency department Answers: 1-2 visits in the last 6 months Score: 8 Date Signed: 07/07/2018 05:18 PM Electronically Signed By:Radha Dietz LCSW Case Management Discharge Plan Note Case Management Discharge Discharge Order Complete? Answers: Yes Patient to Obtain Answers: Independently Medications Transportation Arranged Answers: Family/Friends Transport will Pick (Date 07/07/2018 03:00 PM & Time) Discharge Comments Notes: Patient has been discharged. Friend to transport home. Date Signed: 07/07/2018 05:20 PM Electronically Signed By:Radha Dietz LCSW Intervention Information
--- NOTE | 2018-07-07 20:23 | PDDCSUM ---
Discharge Summary Discharge Summary: Date of Admission: 07/05/2018 Date of Discharge: 07/07/2018 Consultants: neurology, neurosurgery Procedures/Studies: CT head, carotid ultrasound, TTE Disposition: home Discharge Diagnoses: 1. Spontaneous subdural hematoma 2. Ischemic CVA without residual deficit 3. Atrial fibrillation on anticoagulation 4. Bioprosthetic aortic valve replacement 5. Headache 6. SSS s/p pacemaker (unable to get MRI) Brief Hospital Course: 83yo F with bioprosthetic aortic valve and atrial fibrillation on chronic anticoagulation with apixaban presented with 2 weeks of headaches found to have right sided subdural hematoma. She does not remember any preceding trauma. Head CT also showed right sided ischemic CVA which was likely due to compression from the SDH as the rest of her routine CVA work up was unremarkable. She is neurologically intact. We have stopped her anticoagulation indefinitely given the spontaneous nature of the bleed. We are also holding her aspirin and she will follow up with neurosurgery in 1-[address] weeks for repeat head CT and consideration of restarting aspirin. She was discharged on transexamic acid and also started on a statin. I have given her a script for fioricet and a few norco for her headaches, which are improving. I have referred her to Dr Butler for consideration of JARRETT closure device as anticoagulation is not recommended moving forward. Medications: Please refer to EMR. Changes this admission include stopping apixaban, holding aspirin. She was started on transexamic acid and given scripts for fioricet and norco. Follow Up Plan: 1. Neurosurgery clinic visit with Dr Cruz for non-con head CT in 1-2 weeks 2. Decide if will resume aspirin at that time 3. Refer to Dr Butler with cardiology to consider JARRETT closure device, help with AVR management Physical Exam: Vitals and telemetry reviewed, no afib. Alert and oriented with no focal neuro deficits. RRR, lungs clear, abdomen soft and nontender, no JVD or leg edema.
--- NOTE | 2018-07-09 14:07 | GCON ---
DATE OF CONSULTATION: 07/05/2018 REASON FOR CONSULTATION: Subdural hematoma. CHIEF COMPLAINT: Headache. HISTORY OF PRESENT ILLNESS: The patient is a pleasant 83-year-old woman who has a history of being on Eliquis for atrial fibrillation. She presents to the [facility] ED today, where I saw her, complaining that she has had a moderate to severe headache for the past 13 days. She describes it as holocephalic. She does not typically get headaches and worried that she has had this one for so long. After speaking with her primary care doctor, she was directed to come to the emergency department here. She does state that she can tell that she is not thinking clearly. She has felt out of it for the past 13 days since these headaches began. She also has had some trouble doing some recreational activities such as gardening, because the pain is too bad. Her only other neurological symptom is numbness in both feet and legs that she says she has had for many years. She denies any vision changes, difficulty with speech, weakness in arms or legs, seizures, or any known loss of consciousness. She also denies that she has had any falls or other traumatic injuries. She is concerned about pain management and would like something to help her. She states that she has taken Tylenol, which was minimally effective, but she also had some caffeine with Tylenol, and that seemed to be more helpful. PAST MEDICAL HISTORY: 1. Atrial fibrillation. 2. Hypertension. 3. Aortic stenosis, status post bioprosthetic replacement. 4. Reactive airway disease. 5. Gastroesophageal reflux. 6. Peripheral neuropathy. PAST SURGICAL HISTORY: 1. Pacemaker implant. 2. Bovine aortic valve replacement in December 2016. 3. Cholecystectomy. 4. Tubal ligation. 5. Left hip replacement. 6. Right knee surgery. FAMILY HISTORY: The patient has a son who is alive and well. SOCIAL HISTORY: The patient is retired and lives alone. She is not a smoker. CURRENT HOME MEDICATIONS: 1. Aspirin 81 mg p.o. q.h.s. 2. Vitamin D3 2000 units p.o. daily. 3. Latanoprost 0.005% one drop each eye q.h.s. 4. Protonix 40 mg p.o. daily. 5. Tylenol 500 mg p.o. q.6h p.r.n. for pain. 6. Eliquis 5 mg p.o. b.i.d. 7. Ativan 0.5 to 1 mg p.o. q.h.s. 8. Metoprolol 100 mg p.o. q.h.s. 9. [place]-3 fatty acids 1000 mg p.o. b.i.d. 10. R-ecllkenk-H-methionine 400 mg p.o. daily. ALLERGIES: Include: 1. Adhesive tape, which causes blisters. 2. IV contrast, which causes hives. REVIEW OF SYSTEMS: GENERAL: Some generalized malaise. HEAD, EYES, EARS, NOSE and THROAT: Headaches, as in history of present illness. She does wear glasses. She denies any sore throat. CARDIAC: She denies chest pain or syncope. She does have atrial fibrillation. PULMONARY: She denies cough, shortness of breath or wheezing. ABDOMEN: She denies nausea, vomiting, diarrhea or abdominal pain. GENITOURINARY: She denies any dysuria or hematuria. MUSCULOSKELETAL: She denies any back, neck, or extremity pain. SKIN: She denies rashes. NEUROLOGIC: As in history of present illness. HEMATOLOGIC: She denies any easy bruising or bleeding episodes, although she is on Eliquis. IMMUNOLOGIC: She denies any fevers. PSYCHIATRIC: She denies any depression or anxiety. PHYSICAL EXAMINATION: GENERAL: She is a well-developed, well-nourished woman, who appears her recorded age. VITAL SIGNS: At the time of arrival to the ER, temperature 37.1 degrees Celsius, heart rate 73 beats per minute, respiratory rate 16 breaths per minute, blood pressure 140/80 mmHg, oxygen saturation 95% on room air. HEAD: She is normocephalic and atraumatic. EYES: Conjunctivae are clear and sclerae are nonicteric. EARS, NOSE, THROAT: Hearing is grossly intact. She has no otorrhea. She has no rhinorrhea or epistaxis. Her mucous membranes are moist. PULMONARY: She has unlabored respirations with symmetric chest wall excursions. CARDIAC: She has a regular rate and rhythm, and no peripheral edema. ABDOMEN: Soft, nontender, nondistended. EXTREMITIES: She has no outward signs of trauma or other deformity. NEUROLOGIC: She is awake, alert, and oriented to person, place, time, and situation. She has fluent conversational speech and follows commands without difficulty. Her Jennifer Coma Scale Score is 15. Cranial nerves: Her pupils are equal, round, and reactive to light. Extraocular muscle movements are intact. Facial sensation and movements are full and symmetric. Hearing is grossly intact bilaterally. Palate elevates symmetrically. Bilateral shoulder shrug has 5/5 strength. Tongue protrudes in the midline. Motor: She has 5/5 strength in all 4 extremities, including bilateral deltoids, biceps, triceps, wrist extensors, finger abductors, strategic planning director, hip flexors, knee extensors, knee flexors, ankle dorsiflexion, ankle plantar flexion, and extensor hallucis longus. She has no pronator drift. Sensory: She has symmetric sensory loss in bilateral feet and legs in a stocking distribution. Otherwise, sensation is full and intact. Coordination: She has no tremors. LABORATORY DATA: She had a CBC, coagulation panel, and BMP, and a hemoglobin A1c all checked. All values were normal. IMAGING: I have personally viewed images for CT head without contrast done earlier this afternoon, and I have read the Radiology report. I agree with the impression that she has moderate acute on chronic right subdural hematoma with 2 mm right to left midline shift. She also has an area of subacute ischemia in the posterior right temporoparietal lobe, and she has moderate diffuse bifrontal and biparietal white matter disease. ASSESSMENT: The patient is an 83-year-old woman who is on anticoagulation for atrial fibrillation. It would seem that she has had spontaneous subdural hematoma on the right side which is causing some brain compression. On exam, she is neurologically intact. She is having some headaches and some minor cognitive difficulties, per her report. There are no immediate operative indications for the subdural hematoma. RECOMMENDATIONS: The patient will be admitted to the Internal Medicine service. We will repeat a head CT tomorrow to ensure stability of this hematoma. Her Eliquis will be stopped, as well as her aspirin. We will start her on tranexamic acid to help with reabsorption of the subdural hematoma. We will provide pain medications per Internal Medicine for her headaches. Neurology will be consulted for further evaluation and management of apparent subacute stroke. She will also be evaluated by Physical Therapy, Occupational Therapy, and Speech/Language Pathology to assess if she is able to be discharged home, or if she has more advanced needs. Neurosurgery will follow at this time. /[id number]/MODL MTDD
== END 2018-07-07 13:15 | disposition home or self-care (01) | DRG 64 ==
LOC: F2N 18:57
PROVIDERS: ADMIT Family Medicine; ATTEND Family Medicine
DX: I62.02 Nontraumatic subacute subdural hemorrhage (principal); G93.5 Compression of brain; I48.91 Unspecified atrial fibrillation; K21.9 Gastro-esophageal reflux disease without esophagitis; I10 Essential (primary) hypertension; Z79.01 Long term (current) use of anticoagulants; Z95.2 Presence of prosthetic heart valve; Z95.0 Presence of cardiac pacemaker; Z96.642 Presence of left artificial hip joint
CPT/HCPCS: 92523-GN; 97161-GP; 97165-GO; 97530-GP; 97535-GO; G0515-GO; G8978-GP-CI; G8979-GP-CH; G8987-GO-CI; G8988-GO-CI; G9168-GO-CI; G9169-GN-CH

== ENCOUNTER 2018-07-12 09:38 | Day surgery (SDC) | payer OTHER ==
[2018-07-12] MEDS ORDERED: fentaNYL 100 MCG/2 ML INJ IVP ONE (09:47)
[2018-07-12] MEDS ORDERED: BENZOCAINE UNIT DOSE SPRAY HURRICAINE MM ONE (09:47)
[2018-07-12] MEDS ORDERED: MIDAZOLAM 2 MG/2 ML VIAL IVP ONE (09:47)
[2018-07-12] MEDS ORDERED: NS 500 ML IV ONE (09:47)
--- NOTE | 2018-07-12 10:44 | PDANEPAE ---
ANE Past Medical History - Cardiovascular History Hx Hypertension: Yes Hx Arrhythmias: Yes Hx Chest Pain: No Hx Coronary Artery / Peripheral Vascular Disease: No Hx CHF / Valvular Disease: Yes Cardiovascular History Comment: PAF. SSS s/p pacemaker - Pulmonary History Hx COPD: No Hx Asthma/Reactive Airway Disease: Yes Hx Recent Upper Respiratory Infection: No Hx Oxygen in Use at Home: No Hx Sleep Apnea: Yes - Neurologic History Hx Cerebrovascular Accident: Yes Hx Seizures: No Hx Dementia: No - Endocrine History Hx Diabetes: No Hypothyroid: No Hyperthyroid: No Obesity: no - GI History GERD: moderate Hx Gastrointestinal Disorders: Yes - Chronic Pain History Chronic Pain: No ANE Review of Systems Review of Systems: - Exercise capacity Exercise capacity: >=4 METS METS (RN): 4 METS ANE Patient History - Allergies Allergies/Adverse Reactions: adhesive tape [Adhesive Tape] Allergy (Severe, Verified 10/05/15 10:02) BLISTERS iohexol [From Omnipaque 140] Allergy (Severe, Verified 10/05/15 10:02) IV CONTRAST/ HIVES - Home Medications Home Medications: Cholecalciferol Vit D3 [Vitamin D3 2000 units tab (OTC)] 2,000 units PO DAILY [Last Taken 07/05/18] Latanoprost 0.005% [Xalatan 0.005% (*)] 1 drop EACHEYE HS 12/12/16 [Last Taken 07/04/18] Pantoprazole Sodium [Protonix 40mg (*)] 40 mg PO DAILY 12/12/16 [Last Taken ] Acetaminophen [Tylenol ES 500 mg (*)] 500 mg PO Q6 PRN 07/05/18 [Last Taken 07:30] Herbals/Supplements -Info Only 1 ea PO DAILY 07/05/18 [Last Taken 07/05/18] LORazepam [Ativan (*)] 0.5 - 1 mg PO HS 07/05/18 [Last Taken 07/04/18] Metoprolol Succinate Xr [Toprol Xl 100 mg (*)] 100 mg PO HS 07/05/18 [Last Taken 07/04/18] [place]-3 Fatty Acids [Fish Oil 1000 mg (*)] 1,000 mg PO BID 07/05/18 [Last Taken 07/05/18 09:00] S-Adenosylmethionine Sul Tosyl [Yobany-E] 400 mg PO DAILY@12 07/05/18 [Last Taken 07/05/18] - Anes Hx Anes Hx: no prior problems - Smoking Hx Smoking Status: Never smoked Marijuana use: No - Alcohol Use Alcohol Use: Rarely - Family Anes Hx Family Anes Hx: neg - N/A ANE Labs/Vital Signs - Vital Signs Height: 165.1 cm Weight: 72.575 kg ANE Physical Exam - Airway Neck exam: FROM Mallampati Score: Class 2 Mouth exam: normal dental/mouth exam - Pulmonary Pulmonary: no respiratory distress, no rales or rhonchi, clear to auscultation - Cardiovascular Cardiovascular: regular rate and rhythym - ASA Status ASA Status: III ANE Anesthesia Plan Anesthesia Plan: MAC Total IV Anesthesia: Yes
[2018-07-12] MEDS ORDERED: PROPOFOL/EMULSION 500 MG/50 ML BOTTLE IV ONE (11:03)
[2018-07-12] MEDS ORDERED: LIDOCAINE 2% 100 MG/5 ML SYR ONE (11:05)
--- NOTE | 2018-07-12 11:17 | PDHPUP ---
History & Physical Update H&P update statement: This history and physical update is based on an assessment of the patient which was completed after admission or registration (within 24 hours), but prior to the surgery/procedure. H&P update: H&P reviewed & patient examined, no change in patient's condition since H&P completed (Reviewed Dr. Butler's office note dated 07/09/2018)
[2018-07-12] MEDS ORDERED: LR 500 ML IV PRN (11:54)
[2018-07-12] MEDS ORDERED: PHENYLEPHRINE HCL 100 MCG/ML SYR IVP PRN (11:54)
[2018-07-12] MEDS ORDERED: NALOXONE HCL 0.4 MG/ML INJ IVP PRN (11:54)
[2018-07-12] MEDS ORDERED: ONDANSETRON 4 MG/2 ML VIAL IVP PRN (11:54)
--- NOTE | 2018-07-12 11:55 | POSTANESTH ---
Post Anesthetic Evaluation Cardiovascular Status: Normal, Stable Respiratory Status: Normal, Stable Level of Consciousness/Mental Status: Mildly Sleepy, Arousable Pain Control: Adequate, Prn Tx Ordered Nausea/Vomiting Control: Adequate, Prn Tx Ordered Complications Possibly Related to Anesthesia: None Noted
--- NOTE | 2018-07-12 17:05 | ECHO ---
[email or web address] [address] Main: [phone] Fax: Transesophageal Echocardiography Name: CHRISTOPHE MARC MR#: [id number] Study Date: 07/12/2018 Study Time: 10:51 AM Date of : 1935 Age: 83 year(s) Height: ( ) Weight: ( ) BSA: Gender: Female Examination: MOIZ Indication: Pre Watchman, Hx of AVR, Cerebrovascular: prior CVA, Pacemaker, Brain Bleed Image Quality: Contrast: Requested by: Rosa Escalera Heart Rate: Rhythm: BP: / Procedure Staff [employer] Remover: Teo Barker RDCS Reading Physician: Rosa Escalera MD Requesting Provider: Bladimir Butler MOIZ Exam Details Conclusions: Normal size left ventricle. Normal global systolic LV function. The JARRETT measures at 0 degrees 1.2cm x 2.4cm, 45 degrees 1.3 cm x 2.8cm, 90 degrees 1.4cm x 2.8 cm, 135 degrees 1.3cm x 2.4cm. There is a " windsock" anatomical appearance. No thrombus in left appendage. Mild mitral valve regurgitation is present. There is no aortic valve regurgitation. The aortic valve is a bioprosthesis. Normal functioning aortic valve prosthesis. The Ao Mean PG is 11 mmHg with a Av Vmax of 2.4 m/s. Mild tricuspid regurgitation is present. Measurements: Chambers Valvular Assessment AV/MV Valvular Assessment TV/PV Normal Normal Normal Name Value Range Name Value Range Name Value Range AV Vmax: 2.40 m/s (1 m/s-1.7 TR Vmax: 2.91 mm/s ( - ) m/s) TR PGmax: 34 mmHg ( - ) AV maxP mmHg ( - ) syst. PAP: 39 mmHg ( - ) AV meanP mmHg ( - ) Additional Measurements: Valvular Assessment TV/PV Patient: CHRISTOPHE MARC Study Date: 07/12/2018 Page 1 of 2 10:51 AM Name Value CVP (est.): 5 mmHg Findings: Left Ventricle: Normal size left ventricle. Normal global systolic LV function. Right Ventricle: Normal RV function. Left Atrium: The JARRETT measures at 0 degrees 1.2cm x 2.4cm, 45 degrees 1.3 cm x 2.8cm, 90 degrees 1.4cm x 2.8 cm, 135 degrees 1.3cm x 2.4cm. There is a " windsock" anatomical appearance. Left Atrial Appendage: Good color flow doppler in the left atrial appendage. No thrombus in left appendage. Right Atrium: The right atrium is normal in size. There is no pacemaker lead noted in the right atrium. Mitral Valve: Mild mitral valve leaflet calcification is present. Mild mitral valve regurgitation is present. Aortic Valve: There is no aortic valve regurgitation. The aortic valve is a bioprosthesis. Normal functioning aortic valve prosthesis. The Ao Mean PG is 11 mmHg with a Av Vmax of 2.4 m/s. Tricuspid Valve: Mild tricuspid regurgitation is present. Pulmonic Valve: The pulmonic valve is normal in appearance and function. Aorta: The aorta is normal. Pericardium: No pericardial effusion. l1n (No Signature Object) Patient: CHRISTOPHE MARC Study Date: 07/12/2018 Page 2 of 2 10:51 AM [id number]
== END 2018-07-12 13:00 | disposition home or self-care (01) ==
LOC: FCATH 09:38
PROVIDERS: ATTEND Internal Medicine Cardiovascular Disease
PROC: B245ZZ4 Ultrasonography of Left Heart, Transesophageal (ICD-10-PCS; principal; 2018-07-12)
DX: I48.91 Unspecified atrial fibrillation (principal); I35.9 Nonrheumatic aortic valve disorder, unspecified; I10 Essential (primary) hypertension; I49.5 Sick sinus syndrome
CPT/HCPCS: J2001; J2704

== ENCOUNTER → 2018-07-20 | Outpatient (CLI) | payer OTHER | LOC: FIMAGING 11:08 | PROVIDERS: ATTEND Neurological Surgery | DX: I62.02 Nontraumatic subacute subdural hemorrhage (principal); I70.8 Atherosclerosis of other arteries ==

== ENCOUNTER → 2018-08-03 | Outpatient (CLI) | payer OTHER | LOC: FIMAGING 10:07 | PROVIDERS: ATTEND Neurological Surgery | DX: I62.02 Nontraumatic subacute subdural hemorrhage (principal) ==

== ENCOUNTER 2018-08-07 07:25 | Inpatient (IN) | payer OTHER ==
[2018-08-07] MEDS ORDERED: FAMOTIDINE 20 MG/NACL 50 ML IV ONE (07:28)
[2018-08-07] MEDS ORDERED: NS 1,000 ML IV ONE (07:28)
[2018-08-07] MEDS ORDERED: methylPREDNISolone SOD SUCC 125 MG/2 ML VIAL IVP ONE (07:28)
[2018-08-07] MEDS ORDERED: methylPREDNISolone SOD SUCC 125 MG/2 ML VIAL ONE (07:46)
[2018-08-07] MEDS ORDERED: FAMOTIDINE 20 MG/NACL/50 ML BAG IV ONE (07:46)
[2018-08-07] MEDS ORDERED: ceFAZolin 2 GM/DEXTROSE 100 ML IV ONE (08:00)
--- NOTE | 2018-08-07 08:14 | PDPROPOC ---
Sedation Plan of Care Sedation Plan of Care: mental status noted, patient educated of risks, benefits , alternatives, patient can tolerate sedation ASA Classification: ASA 2 Planned drugs: other Mallampati Score: Class 2 Mallampati Reference Image: Patient passed 3-3-2 rule?: Yes
--- NOTE | 2018-08-07 08:14 | PDHPUP ---
History & Physical Update H&P update statement: This history and physical update is based on an assessment of the patient which was completed after admission or registration (within 24 hours), but prior to the surgery/procedure. H&P update: H&P reviewed & patient examined, no change in patient's condition since H&P completed
[2018-08-07] MEDS ORDERED: LIDOCAINE 1% 300 MG/30 ML SDV ONE (08:20)
[2018-08-07] MEDS ORDERED: IOPAMIDOL (ISOVUE-300) 150 ML BTL ONE (08:20)
[2018-08-07] MEDS ORDERED: fentaNYL 100 MCG/2 ML INJ ONE (09:06)
[2018-08-07] MEDS ORDERED: PROPOFOL 200 MG/20 ML VIAL ONE (09:07)
[2018-08-07] MEDS ORDERED: ONDANSETRON 4 MG/2 ML VIAL ONE (09:31)
[2018-08-07] MEDS ORDERED: DEXAMETHASONE 4 MG/ML VIAL ONE (09:31)
[2018-08-07] MEDS ORDERED: ROCURONIUM 50 MG/5 ML VIAL ONE (10:09)
[2018-08-07] MEDS ORDERED: HEPARIN 10,000 UNIT/10 ML MDV (1,000 UNIT/ML) ONE (10:31)
[2018-08-07] MEDS ORDERED: PROTAMINE SULFATE 50 MG/5 ML VIAL IVP ONE ×2 (11:06→11:21)
[2018-08-07] MEDS ORDERED: NEOSTIGMINE METHYLSULFATE 5 MG/5 ML SYR ONE (11:09)
[2018-08-07] MEDS ORDERED: GLYCOPYRROLATE 0.2 MG/1 ML VIAL ONE (11:09)
[2018-08-07] MEDS ORDERED: ATROPINE SULFATE 1 MG/10 ML SYR IVP PRN (11:17)
[2018-08-07] MEDS ORDERED: TEMAZEPAM 15 MG CAP PO PRN (11:17)
[2018-08-07] MEDS ORDERED: NITROGLYCERIN 0.4 MG BTL SL PRN (11:17)
[2018-08-07] MEDS ORDERED: ONDANSETRON 4 MG/2 ML VIAL IVP PRN (11:17)
[2018-08-07] MEDS ORDERED: LORazepam 2 MG/ML INJ IVP PRN (11:17)
[2018-08-07] MEDS ORDERED: OXYCODONE/APAP 5/325 TAB PO PRN (11:17)
[2018-08-07] MEDS ORDERED: ACETAMINOPHEN 500 MG TAB PO PRN (11:18)
[2018-08-07] MEDS ORDERED: ACET/CAFFEINE/BUTA FIORICET 1 EACH TAB PO PRN (11:18)
--- NOTE | 2018-08-07 11:39 | POSTANESTH ---
Post Anesthetic Evaluation Cardiovascular Status: Normal, Stable Respiratory Status: Normal, Stable Level of Consciousness/Mental Status: Moderately Sleepy Pain Control: Adequate, Prn Tx Ordered Nausea/Vomiting Control: Adequate, Prn Tx Ordered Complications Possibly Related to Anesthesia: None Noted
--- NOTE | 2018-08-07 11:39 | PDANEPAE ---
ANE History of Present Illness here for watchman TANI Past Medical History - Cardiovascular History Hx Hypertension: Yes Hx Arrhythmias: Yes Hx Chest Pain: No Hx Coronary Artery / Peripheral Vascular Disease: No Hx CHF / Valvular Disease: Yes Cardiovascular History Comment: PAF. SSS s/p pacemaker - Pulmonary History Hx COPD: No Hx Asthma/Reactive Airway Disease: Yes Hx Recent Upper Respiratory Infection: No Hx Oxygen in Use at Home: No Hx Sleep Apnea: Yes - Neurologic History Hx Cerebrovascular Accident: Yes Hx Seizures: No Hx Dementia: No - Endocrine History Hx Diabetes: No - GI History Hx Gastrointestinal Disorders: Yes - Chronic Pain History Chronic Pain: No ANE Review of Systems Review of systems is: negative Review of Systems: - Exercise capacity Exercise capacity: >=4 METS ANE Patient History - Allergies Allergies/Adverse Reactions: adhesive tape [Adhesive Tape] Allergy (Severe, Verified 10/05/15 10:02) BLISTERS iohexol [From Omnipaque 140] Allergy (Severe, Verified 10/05/15 10:02) IV CONTRAST/ HIVES - Home Medications Home Medications: Cholecalciferol Vit D3 [Vitamin D3 2000 units tab (OTC)] 2,000 units PO DAILY [Last Taken 08/06/18] Latanoprost 0.005% [Xalatan 0.005% (*)] 1 drop EACHEYE HS 12/12/16 [Last Taken 08/06/18] Pantoprazole Sodium [Protonix 40mg (*)] 40 mg PO DAILY 12/12/16 [Last Taken ] Acetaminophen [Tylenol ES 500 mg (*)] 500 mg PO Q6 PRN 07/05/18 [Last Taken 07:30] Herbals/Supplements -Info Only 1 ea PO DAILY 07/05/18 [Last Taken 08/06/18] LORazepam [Ativan (*)] 0.5 - 1 mg PO HS PRN 07/05/18 [Last Taken 07/31/18] Metoprolol Succinate Xr [Toprol Xl 100 mg (*)] 100 mg PO HS 07/05/18 [Last Taken 08/06/18] [place]-3 Fatty Acids [Fish Oil 1000 mg (*)] 1,000 mg PO BID 07/05/18 [Last Taken 08/06/18] Albuterol [Proventil Inhaler HFA (*)] 1 - 2 puffs IH Q4H PRN 08/07/18 [Last Taken Unknown] - Smoking Hx Smoking Status: Never smoked ANE Labs/Vital Signs - Vital Signs Height: 165 cm Weight: 72.6 kg ANE Physical Exam - Airway Neck exam: FROM Mallampati Score: Class 1 - Pulmonary Pulmonary: no respiratory distress - Cardiovascular Cardiovascular: regular rate and rhythym - ASA Status ASA Status: III ANE Anesthesia Plan Anesthesia Plan: general endotracheal anesthesia Urgent/Emergent Case: Aime lynne completed preop but documented later for safe timely pt care (plan for 6.5 ETT (previous VC dysfunction))
[2018-08-07] MEDS: HYDROCODONE/APAP 5/325 TAB PO PRN ×2 (14:02→23:56)
--- NOTE | 2018-08-07 14:28 | CPIP ---
DATE OF PROCEDURE: 08/07/2018 INDICATION FOR PROCEDURE: Inability to tolerate long-term anticoagulation therapy, atrial fibrillati on. CO-SURGEONS: Dr. Dariel Almonte, Dr. Rosa Escalera, Dr. Niall Fair. PROCEDURE: 1. 8-Scottish sheath left common femoral vein. 2. Transseptal access with Talala catheter and wire. 3. Placement of Watchman left atrial appendage occluding device 27 mm by the transfemoral route. 4. Balloon dilation of the atrial septum using a 5.0 x 40 balloon and 6.0 x 40 balloon. HISTORY: Briefly, this is an 83-year-old female with history of elevated CHADS-VASc score of 6, inab ility to tolerate long-term anticoagulation therapy secondary to subdural hematoma and atr ial fibrillation, who has been consented for [place] placement. DESCRIPTION OF PROCEDURE: After informed consent was obtained, the patient was brought to [facility] where the patient was electively intubated. MOIZ performed by Dr. Rosa Escalera. Patient was administered 2 g of Ancef prior to the case as well as being premedicated for iodine allergy. An 8-Scottish sheath was placed into the left common femoral vein. A Talala catheter and wire were then advanced. After 900 0 units of heparin was administered, the transseptal access was then performed with Talala catheter a nd wire. Toray wire was placed in the LA. The sheath was pulled back. At this time attempts were m leonardo to advance the Talala sheath across the septum. This was done after somewhat mild shen k and forth. After this was performed, the Talala catheter was pulled back. A Watchman sheath was t hen advanced and attempts were made to be placed across the septum; however, this was unsuccessful du e to the rubbery nature of the septum. The dilator sheath was pulled back. We decided to dilate thi s with 5.0 x 40 balloon. This was inflated to 10 atmospheres and held for 10 seconds. This was defl ated. Once again we tried with the Watchman sheath. This could not cross once again. This was then pulled back and a 6.0 x 40 balloon was then tried and inflated to 10 atmospheres for 30 seconds. It was then deflated and we attempted the sheath and this was successful. The dilator was then pulled back and the pigtail catheter was advanced and placed into the left atrial appendage. This appeared to be actually a chicken-wing posterior leftward orientation. We decided then, at this point in time , to switch out the sheath again over the Toray wire and place a single curve sheath. After the pigt ail catheter was then placed back into the appendage, coated sheath was placed into the ap pendage, which gave us excellent depth. We decided to move with placement of a 27 mm device. This w as deployed successfully. Post deployment, the compression rates were anywhere from 19% to 26%. The re was an excellent tug test with no movement of the device. The position was right at the ostium of the appendage and there was no noticeable jets going around the device and communicating distally. At this time, the device was deployed successfully. The sheath was pulled back. The right groin was closed with a pursestring suture. The patient tolerated the procedure well. No complications. IMPRESSION: Successful placement of Watchman 27 mm device by the transfemoral route. PLAN: The patient will have 3 hours bed rest. She will be admitted to the PCU. Discharge the sutur e in the left groin in 24 hours. The patient will be started on low-dose anticoagulation therapy for days' therapy. /[id number]/MODL
--- NOTE | 2018-08-07 15:44 | ECHO ---
[email or web address] [address] [address] Main: [phone] Fax: Transesophageal Echocardiography Name: CHRISTOPHE MARC MR#: [id number] Study Date: 08/07/2018 Study Time: 09:32 AM Date of : 1935 Age: 83 year(s) Height: ( ) Weight: ( ) BSA: Gender: Female Examination: MOIZ Indication: Watchman Procedure Image Quality: Adequate Contrast: Requested by: Bladimir Butler Heart Rate: Rhythm: BP: / Procedure Staff Staker Surveying: Yesica Livingston RDCS Reading Physician: Rosa Escalera MD Requesting Provider: MOIZ Exam Details Conclusions: Normal size left ventricle. Normal global systolic LV function. No regional wall motion abnormality. Normal size right ventricle. Normal RV function. No thrombus in left appendage. There is a 27 [address]. Prior to the procedure, the JARRETT measurements include: At 0 degrees, 1.58 cm by 2.47 cm. At 45 degrees, 1.64 cm by 2.4 cm. At 90 degrees, 2.66 cm by 1.52 cm. At 135 degrees, 1.65 cm by 2.09 cm. Prior to device placement, the interatrial septum was dilated with two different balloon sizes to allow room for the sheath. The post procedure device measurements include: At 0 degrees, the measurement is 22 mm. At 45 degrees, the measurement is 21.7 mm. At 90 degrees, the measurement is 21.5 cm. At 135 degrees, the measurement is 20 mm There is minimal flow near the anterior aspect of the device, measuring 2 mm, without direct communication posterior to the device. Mild mitral valve regurgitation is present. The aortic valve is a bioprosthesis. No prosthesis regurgitation. No pericardial effusion. Measurements: Chambers Valvular Assessment AV/MV Valvular Assessment TV/PV Normal Normal Normal Name Value Range Name Value Range Name Value Range Patient: CHRISTOPHE MARC Study Date: 08/07/2018 Page 1 of 2 09:32 AM Additional Measurements: Findings: Left Ventricle: Normal size left ventricle. Normal global systolic LV function. No regional wall motion abnormality. Right Ventricle: Normal size right ventricle. Normal RV function. Left Atrium: The left atrium is normal in size. Left Atrial Appendage: The left atrial appendage is unilobular. Good color flow doppler in the left atrial appendage. No thrombus in left appendage. There is a 27 [address]. Prior to the procedure, the JARRETT measurements include: At 0 degrees, 1.58 cm by 2.47 cm. At 45 degrees, 1.64 cm by 2.4 cm. At 90 degrees, 2.66 cm by 1.52 cm. At 135 degrees, 1.65 cm by 2.09 cm. Prior to device placement, the interatrial septum was dilated with two different balloon sizes to allow room for the sheath. The post procedure device measurements include: At 0 degrees, the measurement is 22 mm. At 45 degrees, the measurement is 21.7 mm. At 90 degrees, the measurement is 21.5 cm. At 135 degrees, the measurement is 20 mm There is minimal flow near the anterior aspect of the device, measuring 2 mm, without direct communication posterior to the device. Right Atrium: The right atrium is normal in size. Mitral Valve: The mitral valve is normal in appearance and function. Mild mitral valve regurgitation is present. No mitral stenosis is present. Aortic Valve: The aortic valve is a bioprosthesis. Normal functioning aortic valve prosthesis. The prosthetic aortic valve is normal. The orifice motion of the prosthetic aortic valve is normal. No prosthesis regurgitation. Tricuspid Valve: The tricuspid valve is normal in appearance and function. Pulmonic Valve: The pulmonic valve is normal in appearance and function. Aorta: Normal size. Pericardium: No pericardial effusion. l1n (No Signature Object) Patient: CHRISTOPHE MARC Study Date: 08/07/2018 Page 2 of 2 09:32 AM [id number]
--- NOTE | 2018-08-07 16:10 | PDMN ---
Medical Necessity Medical necessity: [facility] IP only surgery CPT 49608 Watchman Left Atrial Appendage Closure Device
[2018-08-07] MEDS: TRANEXAMIC ACID 650 MG TAB PO SCH ×2 (16:25→21:48)
--- NOTE | 2018-08-07 17:23 | POSTANESTH ---
Post Anesthetic Evaluation Cardiovascular Status: Normal, Stable Respiratory Status: Normal, Stable Level of Consciousness/Mental Status: Can Participate in Eval Pain Control: Adequate, Prn Tx Ordered Nausea/Vomiting Control: Adequate, Prn Tx Ordered Complications Possibly Related to Anesthesia: None Noted
[2018-08-07] MEDS ORDERED: LATANOPROST 0.005% 2.5 ML OPHT DROPS EACHEYE SCH (21:00)
[2018-08-07] MEDS ORDERED: METOPROLOL SUCCINATE XR 100 MG TAB PO SCH (21:00)
[2018-08-07] MEDS: OMEGA-3 FATTY ACIDS 1,000 MG CAP PO SCH (21:43)
[2018-08-08 04:52] LABS: PLATELET COUNT 147 10^3/uL (150-400)
--- NOTE | 2018-08-08 07:00 | PDCARPN ---
Cardiology Progress Note Chief Complaint: AF/inability to tolerate [facility] AC tx Assessment/Plan: Assessment: s/p watchman Plan: 08/08/18 06:59 doing well no groin issues remove suture now d/c home 45 day AC tx Subjective: doing well Reviewed/Discussed With: multidisciplinary team Time Spent with Patient: greater than 25 minutes Time Spent with Patient: Greater than 25 minutes spent on this patients care, greater than 50% of time spent counseling, educating, and coordinating care regarding the above mentioned plan. Objective: Vital Signs (8 Hrs) Temp Pulse Resp BP Pulse Ox 08/08/18 03:19 36.9 C 72 15 104/64 92 Intake/Output (24 Hrs) 08/07/18 08/08/18 08/09/18 05:59 05:59 05:59 Intake Total 1050 Output Total 750 Balance 300 Intake: Oral (ml) 250 IV Intake (ml) 800 Output: Urine (ml) 750 Bedpan 750 Other: Weight 72.6 kg Intake Quantity Yes Sufficient Output Comment Bedpan foul smelling Number of Voids Bedpan 1 Toilet 1 Result Diagrams: 08/08/18 03:09 08/08/18 03:09 - Physical Exam Constitutional: healthy appearing Eyes: PERRL Ears, Nose, Mouth, Throat: moist mucous membranes Cardiovascular: regular rate and rhythm Peripheral Pulses: 1+: femoral (R), femoral (L) Respiratory: clear to auscultate bilat Gastrointestinal: normoactive bowel sounds Genitourinary: no suprapubic tenderness Skin: no rashes Musculoskeletal: no muscular tenderness Neurologic: AAOx3 ICD10 Worksheet Patient Problems: Problems Problem Status Onset Atrial fibrillation with RVR Acute Atrial fibrillation with rapid ventricular response Acute Cerebral edema Acute Encephalopathy acute Acute Ischemic stroke Acute S/P AVR (aortic valve replacement) Acute Subdural hematoma Acute Aortic stenosis, severe Chronic
--- NOTE | 2018-08-08 07:26 | GDS ---
DISCHARGE DIAGNOSIS: Watchman placement. HOSPITAL COURSE: Briefly, this is an 83-year-old female with history of paroxysmal atrial fibrillati on, CHADS2-VASc score of 6, and recent subdural hematoma, unable to tolerate long-term anticoagulatio n therapy. The patient underwent successful Watchman placement on 08/07/2018, with a 27 mm Watchman device. Postprocedure, the patient has done very well, ambulating in the halls without problems. This mornin g, her laboratory values showed just a slight decrease in her hemoglobin. Otherwise, all other labor atory values are within normal limits. The patient's left groin is soft with no bleeding. She will have her suture in her left groin removed this morning. She will be started on anticoagulation thera py for 45 days and follow up in the office with us in 1 week's time. /[id number]/MODL
[2018-08-08 07:30] VITALS: BP 105/58
[2018-08-08] MEDS ORDERED: ATORVASTATIN CALCIUM 20 MG TAB PO SCH (09:00)
[2018-08-08] MEDS ORDERED: PANTOPRAZOLE SODIUM 40 MG TAB PO SCH (09:00)
[2018-08-08] MEDS ORDERED: CHOLECALCIFEROL VIT D3 2,000 UNITS TAB/CAP PO SCH (09:00)
[2018-08-08] MEDS: TRANEXAMIC ACID 650 MG TAB PO SCH (10:06)
[2018-08-08] MEDS: OMEGA-3 FATTY ACIDS 1,000 MG CAP PO SCH (10:06)
--- NOTE | 2018-08-08 16:28 | CPEKG ---
Test Reason : OPEN Blood Pressure : / mmHG Vent. Rate : 065 BPM Atrial Rate : 000 BPM P-R Int : 157 ms QRS Dur : 093 ms QT Int : 645 ms P-R-T Axes : 079 016 051 degrees QTc Int : 671 ms Atrial-paced rhythm Nonspecific T abnormalities, lateral leads Prolonged QT interval Atrial pacing is new in comparison to prior which noted atrial fibrillation Confirmed by Edwin Ramirez ([id number]) on 08/08/2018 4:28:41 PM Referred By: Confirmed By:Edwin Ramirez
--- NOTE | 2018-08-09 12:16 | CPEKG ---
Test Reason : OPEN Blood Pressure : / mmHG Vent. Rate : 071 BPM Atrial Rate : 071 BPM P-R Int : 128 ms QRS Dur : 088 ms QT Int : 435 ms P-R-T Axes : 114 010 057 degrees QTc Int : 473 ms Atrial-paced rhythm Confirmed by Edwin Ramirez ([id number]) on 08/09/2018 12:15:57 PM Referred By: Confirmed By:Edwin Ramirez
== END 2018-08-08 12:10 | disposition home or self-care (01) | DRG 274 ==
LOC: FCATH 07:25 → F2W 11:17
PROVIDERS: ADMIT Internal Medicine Cardiovascular Disease; ATTEND Internal Medicine Cardiovascular Disease
PROC: 02L73DK Occlusion of Left Atrial Appendage with Intraluminal Device, Percutaneous Approach (ICD-10-PCS; principal; 2018-08-07)
DX: I48.91 Unspecified atrial fibrillation (principal); Z00.6 Encounter for examination for normal comparison and control in clinical research program; I10 Essential (primary) hypertension; I35.9 Nonrheumatic aortic valve disorder, unspecified; J45.909 Unspecified asthma, uncomplicated; G47.30 Sleep apnea, unspecified; Z95.0 Presence of cardiac pacemaker
CPT/HCPCS: C1725; C1769; C1893; J0690; J1100; J1200; J1644; J2405; J2704; J2710; J2720; J2930; J3010; Q9967

== ENCOUNTER → 2018-08-16 | Outpatient (CLI) | payer OTHER | LOC: BHFA 13:00 | PROVIDERS: ATTEND Internal Medicine Cardiovascular Disease | DX: Z95.0 Presence of cardiac pacemaker (principal); Z95.2 Presence of prosthetic heart valve ==

== ENCOUNTER → 2018-09-16 | Outpatient (CLI) | payer OTHER | LOC: CIMAGING 10:47 | PROVIDERS: ATTEND Internal Medicine Hematology & Oncology | DX: Z12.31 Encounter for screening mammogram for malignant neoplasm of breast (principal); Z85.3 Personal history of malignant neoplasm of breast; Z80.3 Family history of malignant neoplasm of breast ==

== ENCOUNTER 2019-02-16 07:48 | Observation (INO) | payer OTHER ==
--- NOTE | 2019-02-16 08:03 | EDPHY ---
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 She went to bed last night at 10: 00 p.m. Feeling normal and then this morning woke up at 4:30 a.m. To urinate and felt like her left leg was numb and weak. She had trouble getting out of bed and took her about 5 min. She was able to get to the bathroom using a cane and then sat down to watch a taped [employer] movie which is the type of thing she does when she gets anxious. After about 45 min she was able to get up and felt like her motor strength and resolved in her leg but still has a tingling in her calf now. Of note she has chronic left foot numbness which is not changed. REVIEW OF SYSTEMS: Eye: no change in vision ENT: no sore throat Cardiac: no chest pain or syncope Pulmonary: no cough or SOB Abdomen: no vomiting, diarrhea, abdominal pain Musculoskeletal: She has had some left low back pain which is 1/10 now for about the past week and half Skin: no rash Neuro: no headache, chronic left foot numbness Constitutional: no fever : No incontinence, no urinary symptoms A comprehensive 10 point review of systems is otherwise negative aside from elements mentioned in the history of present illness. 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 Right total knee arthroplasty. Social history: Nonsmoker General Appearance: Alert and conversant, cooperative. Eyes: No scleral icterus. ENT, Mouth: Normal mucous membranes. Respiratory: Normal respiratory effort, breath sounds equal, lungs are clear to auscultation. Cardiovascular: Regular rate and rhythm. Gastrointestinal: Abdomen is soft and non tender. Neurological: Alert, face symmetric, extraocular motion intact. Toes downgoing bilaterally. 5/5 plantar flexion and dorsiflexion of both feet. She has some numbness on the base of the left foot as well as in the left calf, the calf is new. She can lift each leg off the bed independently and hold for count of 10. Straight leg raising negative bilaterally. Skin: Warm and dry, no rashes. Musculoskeletal: No spinal tenderness. Psychiatric: Not agitated. Emergency Department course/MDM: Moderate to high suspicion for TIA given motor and sensory symptoms, history of atrial fibrillation, not anticoagulated. She is not made a stroke alert because she has some mild calf tingling and numbness to light touch on the left lower leg only, I think that the risk of Activase in this patient would outweigh potential benefit. Plan EKG, head CT, laboratory, phone consultation with Neurology, she has seen Dr. Rodriguez in the office. 923: Negative head CT for acute stroke or bleed or subdural per Dr. Meredith. 942: Dr. Huynh from neurology, to see patient. 1050: neurology with patient, recommended admission for further evaluation. Smoking Status: Never smoked Constitutional: Initial Vital Signs Temperature (C) 36.6 C 02/16/19 07:59 Heart Rate 73 02/16/19 07:59 Respiratory Rate 16 02/16/19 07:59 Blood Pressure 150/99 H 02/16/19 07:59 O2 Sat (%) 96 02/16/19 07:59 O2 Delivery Mode Room Air Allergies/Adverse Reactions: adhesive tape [Adhesive Tape] Allergy (Severe, Verified 10/05/15 10:02) BLISTERS iohexol [From Omnipaque 140] Allergy (Severe, Verified 10/05/15 10:02) IV CONTRAST/ HIVES Iodinated Contrast- Oral and IV Dye Allergy (Verified 02/16/19 08:01) Home Medications: Medication Instructions Recorded Cholecalciferol Vit D3 [Vitamin D3 2,000 units PO DAILY 12/12/16 2000 units tab (OTC)] Latanoprost 0.005% [Xalatan 0.005% 1 drop EACHEYE HS 12/12/16 (*)] Pantoprazole Sodium [Protonix 40mg 40 mg PO DAILY 12/12/16 (*)] Acetaminophen [Tylenol ES 500 mg 500 mg PO Q6 PRN 07/05/18 (*)] Herbals/Supplements -Info Only 1 ea PO DAILY 07/05/18 LORazepam [Ativan (*)] 0.5 - 1 mg PO HS PRN 09/21/18 Metoprolol Succinate Xr [Toprol Xl 100 mg PO HS 07/05/18 100 mg (*)] [place]-3 Fatty Acids [Fish Oil 1000 1,000 mg PO BID 07/05/18 mg (*)] Acet/Caffeine/Buta Fioricet 1 each PO Q6HRS PRN #30 tab 07/07/18 [Fioricet (*)] Atorvastatin Calcium [Lipitor 20 20 mg PO DAILY #30 tab 07/07/18 mg (*)] Albuterol [Proventil Inhaler HFA 1 - 2 puffs IH Q4H PRN 08/07/18 (*)] Aspirin [Aspirin 81mg (*)] 81 mg PO DAILY #90 tab 09/09/18 Medical Decision Making - Diagnostics EKG Interpretation: 12-lead EKG interpreted by me; official reading is in computer system. My interpretation is paced rhythm atrially, rate 65. Imaging Results: Imaging Impressions Head CT 02/16/19 08:20 Impression: 1. Old right temporal occipital infarct. 2. No acute hemorrhage, hydrocephalus, or mass effect. 3. Cerebrovascular atherosclerosis. 4. No definite acute infarct. 5. Mild cerebral atrophy and severe microvascular ischemic gliosis. 6. Moderate right maxillary sinusitis. 7.Consider MRI of the brain, if there is continued clinical concern. Findings and recommendations discussed with Emergency Department physician, ATA VENEGAS at 9:15 hour, 02/16/2019. Final report concurs with initial preliminary interpretation. Imaging: Discussed imaging studies w/ instructional systems designer Radiologist Differential Diagnosis: Differential considered including but not limited to subdural, ischemic stroke, lumbar radiculopathy, intracranial mass or hemorrhage Consult/Admit Bed Type: [facility] at 945, [facility] 1103 - Data Points Laboratory Results: Laboratory Results 02/16/19 08:30 02/16/19 02/16/19 08:44 08:30 POC Hgb 14.6 gm/dL gm/dL (12.6-16.3) POC Hct 43 % % (38-47) POC Sodium 144 mEq/L mEq/L (135-145) Sodium 141 mEq/L mEq/L (135-145) POC Potassium 4.3 mEq/L mEq/L (3.3-5.0) Potassium 4.5 mEq/L mEq/L (3.5-5.2) POC Chloride 109 mEq/L mEq/L (97-110) Chloride 107 mEq/L mEq/L (97-110) Carbon Dioxide 27 mEq/l mEq/l (22-31) POC Total CO2 29 mEq/L mEq/L (22-31) Anion Gap 7 mEq/L mEq/L (6-14) POC BUN 24 mg/dL H mg/dL (7-23) BUN 23 mg/dL mg/dL (7-23) Creatinine 0.7 mg/dL mg/dL (0.6-1.0) POC Creatinine 0.8 mg/dL mg/dL (0.6-1.0) Estimated GFR > 60 Glucose 95 mg/dL mg/dL (70-100) POC Glucose 92 mg/dL mg/dL (70-100) Calcium 9.7 mg/dL mg/dL (8.5-10.4) Point of Care Test Results: Chemistry 02/16/19 08:44 POC Sodium 144 mEq/L mEq/L (135-145) POC Potassium 4.3 mEq/L mEq/L (3.3-5.0) POC Chloride 109 mEq/L mEq/L (97-110) POC Total CO2 29 mEq/L mEq/L (22-31) POC BUN 24 mg/dL H mg/dL (7-23) POC Creatinine 0.8 mg/dL mg/dL (0.6-1.0) POC Glucose 92 mg/dL mg/dL (70-100) ISTAT H&H 02/16/19 08:44 POC Hgb 14.6 gm/dL gm/dL (12.6-16.3) POC Hct 43 % % (38-47) Departure - Departure Disposition: [facility] Inpatient Acute Clinical Impression: Paresthesia of left leg Condition: Good Instructions: Paresthesia (ED) Additional Instructions: Return right away if you get recurrent new weakness or numbness in any extremity , or any other new symptoms. Continue medications as prescribed. Referrals: Paulina Simon NP [Primary Care Provider] - As per Instructions Chace Huynh MD [Medical Doctor] - As per Instructions
--- NOTE | 2019-02-16 09:21 | CPEKG ---
Test Reason : OPEN Blood Pressure : / mmHG Vent. Rate : 065 BPM Atrial Rate : 065 BPM P-R Int : 124 ms QRS Dur : 090 ms QT Int : 403 ms P-R-T Axes : 089 005 071 degrees QTc Int : 419 ms Atrial-paced rhythm Borderline repol abnrm, anterior leads Confirmed by Ata Venegas ([id number]) on 02/16/2019 9:20:19 AM Referred By: ATA VENEGAS Confirmed By:Ata Venegas
[2019-02-16 12:13] LABS: PLATELET COUNT 179 10^3/uL (150-400)
--- NOTE | 2019-02-16 12:34 | GCON ---
[f rep st] CONSULTATION NEUROLOGIC CONSULTATION REFERRING PHYSICIAN: Reagan Frederick MD The patient is being admitting to the hospitalist service. HISTORY: The patient is an 83-year-old woman who I am asked to see in neurologic consultation regard ing left leg weakness. She says she went to bed last evening and was doing fine. Around 4:30 in the morning, she was getting up as she often does to go to the bathroom, but she said her left leg felt a little bit numb and weak. After about 5 minute, she felt she could get up to walk safely and felt the leg was a little bit weak. She used her cane. She sat and watched television over the next hour or so, and then after 45 minutes, she did get up and was feeling better except for mild degree of ti ngling that was just in the calf. She went to an urgent care and then was transferred here for evalu ation. She feels essentially back to baseline except for just a trace amount of paresthesia in the c chayito. She does not have particular pain in her leg or her back. She said it did feel somewhat like t he leg had fallen asleep. She has not had this specific phenomenon before. No symptoms in the face or arm. About 9 days ago, she had an episode where she was a little bit confused trying to work at h er computer, and that resolved after just a few minutes. 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 This occurred in 2016, where she first had the documentation of the stroke on a CT scan. She had previously underg one an aortic valve replacement in early December on December 13 when she had a mini aortic valve replacem ent with a #21 Magna bioprosthesis. She does also has a prior history of pacemaker implantation some 10 years ago and chronic atrial fibrillation and a prior severe aortic stenosis. She went to the [facility] after the procedure, and had postoperative atrial fibrillation, converted to sinus rhythm with meto prolol and amiodarone, and Eliquis was started for thrombus prophylaxis. Her status changed when she was seen in the emergency room 6 days later on December 19, 2016. At that point, she was on rehabilitat ion recovering from her heart surgery. Her son was reporting that she was a little bit confused and trouble performing tasks the night before she came in and got some lorazepam, and that led to the con cern that it might be involved in contributing to her symptoms. She did not have focal deficits at t hat time. She had an NIH stroke scale documented in 2016 of 0 during that hospitalization admission to the emergency department, and then there was evidence of subacute infarction in the right parieto- occipital region near the watershed territory. She was not a candidate for tPA. Since that time she was on Eliquis, and in June of last year, she presented with some headache a nd was found to have bilateral subdural hematoma. There was evidence of evolving ischemic changes fr om that old ischemic infarct, but no acute infarct identified. She then subsequently had WATCHMAN pr ocedure performed on August 07, 2018. Since then, she has been taking aspirin. Stronger anticoagul ation was avoided because of the subdural she had experienced. That leads up to today's admission wh en she came in, and the most recent head CT today shows evolution of that old infarct with right occi pital horn dilatation consistent with the expected evolution of dilation of the ventricle as opposed to any evidence of a mass effect. We do not see any subdural hematoma at this point. 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 No smoking or alcohol. She has a history of tu bal ligation, cholecystectomy, left hip replacement, and right knee replacement. She said that late last year she had malignant melanoma removed from the scalp with a Mohs procedure. She had a remote history of possible breast cancer with lumpectomy, but she says no malignancy was even identified at the time of the biopsy. FAMILY HISTORY: Noncontributory. ALLERGIES: She has a history of an allergic type reaction to Omnipaque contrast. Adhesive tape can cause blisters. HOME MEDICATIONS: Aspirin 81 mg daily, Lipitor 20 mg daily, metoprolol, lorazepam as needed, Fiorice t as needed, albuterol inhaler as needed, vitamin D. REVIEW OF SYSTEMS: As outlined above. Otherwise unremarkable. PHYSICAL EXAM: VITAL SIGNS: Current blood pressure is 154/88, pulse of 71, respirations 16, tempera ture 36.6. GENERAL: She is a well-developed woman, lying in the bed in no acute distress. EYES: C lear. NECK: Supple with no bruits or masses. CARDIAC: Regular rate and rhythm. No murmur. NEURO LOGIC: She is awake, alert and attentive, and mildly anxious, but appropriate and fully oriented wit hout any obvious cognitive impairment. No aphasia. Pupils 2 mm and reactive. Extraocular movements are intact. No visual field loss. Normal facial sensation and strength. Palate elevates symmetric ally. Tongue protrudes midline. Hearing is preserved. MOTOR: Normal muscle bulk and tone, 5/5 str ength. Sensation is preserved for temperature and light touch throughout. No ataxia. She is able t o ambulate slowly, but seems to be at her baseline. Reflexes are 1+. LABORATORY: Labs today: Unremarkable electrolytes. Hemoglobin 14. The patient has an NIH stroke scale of 0. IMPRESSION: Total unit time of 75 minutes. The patient has a complex history of prior stroke which occurred back in 2017 status post aortic valve replacement and a period of confusion associated with lorazepam at that time. She has had some other episodes prompting evaluations for which transient is chemia attack has been in the differential diagnosis or other encephalopathy, but no new distinct inf arcts have ever been seen. Because she has a pacemaker, she does not get MRI scans. The change in t he right posterior parieto-occipital region near the watershed area looks like evolution of the right posterior division middle cerebral artery area of ischemia. She had a recent subdural hematoma, and that led to switching from Eliquis to doing a WATCHMAN procedure for the left atrial appendage closu re and subsequent aspirin therapy. She now has presented today with this episode early this morning, which is probably not a TIA and rather left sciatic nerve compression perhaps causing this. We florentin ot perform MRI scan because of pacemaker. She has a contrast allergy which is significant, so we did not do CT angiogram, and think it is low likelihood of large vessel occlusion. For now, I am recommending she be hospitalized and have an echocardiogram, either transthoracic or tr ansesophageal, per Cardiology recommendation to assess the status of her WATCHMAN device and other ca rdiac valve and functional status. She is comfortable being monitored in the hospital, and hopefully over the next 24 hours, stability can be confirmed and she would be able to be discharged for outpat ient followup. /[id number]/MODL
[2019-02-16] MEDS ORDERED: LORazepam 1 MG TAB PO PRN (13:20)
[2019-02-16] MEDS ORDERED: ACETAMINOPHEN 500 MG TAB PO PRN (13:20)
[2019-02-16] MEDS ORDERED: ONDANSETRON DISINTEGRATING 4 MG TAB PO PRN (13:24)
[2019-02-16] MEDS ORDERED: ONDANSETRON 4 MG/2 ML VIAL IVP PRN (13:24)
--- NOTE | 2019-02-16 14:04 | GHP ---
[f rep st] HISTORY AND PHYSICAL DATE OF ADMISSION: 02/16/2019 Ms. King is a pleasant 83-year-old female with a history of aortic valve replacement, atrial fibril lation, subdural hematoma on anticoagulation, now managed with a Watchman device. This has all happe yaritza in the last 15 months. This morning she woke up early. She had some numbness and weakness in her left leg. She sat in bed for a few minutes wondering what it was. She was able to get up and go to the bathroom. Symptoms re solved on their own. She did not have left arm weakness or numbness. She did not have speech diffic ulties. The symptoms had resolved by the time she presented, and when she was seen by my neurology colleague, Dr. Huynh, an hour or so ago, she had a spot of numbness on her left calf. She now has none. S he has not had recent fever, chills, cough, sputum, nausea, vomiting, diarrhea. She is off anticoagu lation secondary to a subdural hematoma that was atraumatic as far as she recalled. She does have a history of prior stroke in the temporal occipital region on the right. When I speak to the patient, she is somewhat anxious and asking questions about the prognosis of stro ke, etc. I did spend some time explaining how the outcome of stroke is entirely dependent on where i t happens. REVIEW OF SYSTEMS: Complete 10-point review of systems conducted and negative except as noted in the HPI. PAST MEDICAL HISTORY: 1. Atrial fibrillation, off anticoagulation. 2. Aortic valve replacement with a bovine aortic valve in June of 2017. 3. Subdural hematoma in June of 2018. This did not require surgical evaluation. 4. Watchman device placement in July of 2018. 5. Glaucoma. 6. Hypertension. 7. Hyperlipidemia. 8. Pacemaker for sick sinus syndrome. ALLERGIES: Adhesive tape, iohexol, oral and IV contrast dye. HOME MEDICATIONS: Tylenol, aspirin, Zyrtec, vitamin D3, latanoprost eyedrops, lorazepam h.s., Toprol -XL, fish oil, pantoprazole, rosuvastatin. 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 No alcohol or tobacco. Lives locally. FAMILY HISTORY: Parents . PHYSICAL EXAMINATION: VITAL SIGNS: Temp 36.9, blood pressure 142/85, pulse 66, breathing 18 times a minute, 97% on room air. GENERAL: No acute distress. ENT: Sclerae anicteric. Oropharynx clear. Mucous membranes moist. NECK: Supple. No lymphadenopathy. No JVD. LUNGS: Clear to auscultation bilaterally. HEART: S1, S2 with a 3/6 holosystolic murmur heard best in the right upper and left u pper sternal border. There is a well-healed midline sternotomy scar. ABDOMEN: Soft, nontender, non distended. LOWER EXTREMITIES: No edema. Calves nontender. SKIN: Without rash. NEUROLOGIC: Comp letely normal. LABORATORY DATA: White count 6, hematocrit 43, platelets are 179,000. INR is 1. Sodium 141, potass ium 4.5, chloride 107, bicarb 27, BUN 23, and creatinine 0.7, glucose 95, calcium 9.7. EKG shows paced rhythm at 65. No ischemic changes. Noncontrast head CT shows old right temporal occipital infarct. No acute hemorrhage. Vascular ather osclerosis. No acute infarcts. Mild cerebral atrophy, severe microvascular ischemic gliosis, sinusi tis. I discussed the case with Dr. Chace Huynh, Dr. Reagan Frederick. ASSESSMENT/PLAN: An 83-year-old female with multiple risk factors for stroke and previous history of stroke, who presents with possible transischemic attack. 1. Possible TIA. I think this is unlikely to be a neurovascular event. However, her risk factor pr ofile is such that it needs to be taken seriously. The patient needs a MOIZ in the morning. She is a lready found herself to be not a candidate for anticoagulation on the basis of prior subdural. This is discussed with Neurology. Her symptoms have largely resolved. I would say she is not a candidate for lytics given that within the last 7 months she has had a significant intracranial bleed. 2. Hyperlipidemia. I will check a lipid panel. 3. Hypertension. Continue her Toprol. 4. Atrial fibrillation. She is currently paced. She has a Watchman device. That will be evaluated with a MOIZ tomorrow. DISPOSITION: Observation status. CODE: Full. /[id number]/MODL
--- NOTE | 2019-02-16 15:36 | ASMTCMCOM ---
CM Note CM Note Notes: Pt presented to the ED through triage for LLE numbness and weakness. Pt admitted for a MOIZ tomorrow and further monitoring/workup. Pt's PMH includes: A-fib, aortic valve replacement, subdural hematoma, WATCHMAN device placement, glaucoma, HTN, HLD, and a pacemaker. Spoke with pt at bedside and asked if she would like CM to contact her daughter, Francia ([phone]) who lives the closest in [place], or her son, Edwin ([phone]) who lives in [place]. Pt said she will call her 3 children when she gets settled into her inpatient bed. Pt was very anxious about being admitted because she has a lot to do at home. Pt stated she would like to go home as soon as possible. Pt and mentioned she didn't have much to read other than a travel book that was in her car "but it is not engrossing," and that "TV is a wasteland." Pt states she "rather be working in the garden." CM spoke w/pt about friends or neighbors being able to bring her a book from home but pt stated "it was not necessary." Pt lives alone in a private home and states she has people who help her w/lawn care and house cleaning. 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 Pt is normally very independent and active. PT/OT/PASSENGER SOLICITOR ordered. Anticipate pt to DC home Independent. CM to follow. Date Signed: 02/16/2019 03:36 PM Electronically Signed By:Bailee Rios RN
[2019-02-16] MEDS ORDERED: METOPROLOL SUCCINATE XR 100 MG TAB PO SCH (21:00)
[2019-02-16] MEDS ORDERED: LATANOPROST 0.005% 2.5 ML OPHT DROPS EACHEYE SCH (21:00)
[2019-02-16] MEDS ORDERED: ASPIRIN 81 MG CHEWABLE TAB PO SCH (21:00)
[2019-02-16] MEDS: OMEGA-3 FATTY ACIDS 1,000 MG CAP PO SCH (21:06)
[2019-02-17] MEDS ORDERED: Herbals/Supplements -Info Only PO SCH (09:00)
[2019-02-17] MEDS ORDERED: CETIRIZINE 10 MG TAB PO SCH (09:00)
[2019-02-17] MEDS ORDERED: CHOLECALCIFEROL VIT D3 2,000 UNITS TAB/CAP PO SCH (09:00)
[2019-02-17] MEDS ORDERED: PANTOPRAZOLE SODIUM 40 MG TAB PO SCH (09:00)
[2019-02-17] MEDS ORDERED: ROSUVASTATIN CALCIUM 10 MG TAB PO SCH (09:00)
[2019-02-17] MEDS: OMEGA-3 FATTY ACIDS 1,000 MG CAP PO SCH (09:22)
[2019-02-17] MEDS ORDERED: ATROPINE SULFATE 1 MG/10 ML SYR ONE (11:21)
[2019-02-17] MEDS ORDERED: BENZOCAINE UNIT DOSE SPRAY HURRICAINE MM ONE (11:37)
[2019-02-17] MEDS ORDERED: MIDAZOLAM 2 MG/2 ML VIAL IVP ONE (11:37)
[2019-02-17] MEDS ORDERED: NS 500 ML IV ONE (11:37)
[2019-02-17] MEDS ORDERED: fentaNYL 100 MCG/2 ML INJ IVP ONE (11:37)
[2019-02-17] MEDS ORDERED: PROPOFOL 200 MG/20 ML VIAL ONE (13:46)
--- NOTE | 2019-02-17 13:47 | PDANEPAE ---
ANE History of Present Illness afib and here for MOIZ ANE Past Medical History - Cardiovascular History Hx Hypertension: Yes Hx Arrhythmias: Yes Hx Chest Pain: No Hx Coronary Artery / Peripheral Vascular Disease: No Hx CHF / Valvular Disease: Yes Cardiovascular History Comment: PAF. SSS s/p pacemaker - Pulmonary History Hx COPD: No Hx Asthma/Reactive Airway Disease: Yes Hx Recent Upper Respiratory Infection: No Hx Oxygen in Use at Home: No Hx Sleep Apnea: Yes - Neurologic History Hx Cerebrovascular Accident: Yes Hx Seizures: No Hx Dementia: No - Endocrine History Hx Diabetes: No - GI History Hx Gastrointestinal Disorders: Yes - Chronic Pain History Chronic Pain: No ANE Review of Systems Review of Systems: ANE Patient History - Allergies Allergies/Adverse Reactions: adhesive tape [Adhesive Tape] Allergy (Severe, Verified 10/05/15 10:02) BLISTERS iohexol [From Omnipaque 140] Allergy (Severe, Verified 10/05/15 10:02) IV CONTRAST/ HIVES Iodinated Contrast- Oral and IV Dye Allergy (Verified 02/16/19 08:01) - Home Medications Home Medications: Cholecalciferol Vit D3 [Vitamin D3 2000 units tab (OTC)] 2,000 units PO DAILY [Last Taken 09/08/18 08:00] Latanoprost 0.005% [Xalatan 0.005% (*)] 1 drop EACHEYE HS 12/12/16 [Last Taken 09/08/18 21:00] Pantoprazole Sodium [Protonix 40mg (*)] 40 mg PO DAILY 12/12/16 [Last Taken 01/31] Acetaminophen [Tylenol ES 500 mg (*)] 500 mg PO Q6 PRN 07/05/18 [Last Taken 07:30] Herbals/Supplements -Info Only 1 ea PO DAILY 07/05/18 [Last Taken 08/06/18] LORazepam [Ativan (*)] 0.5 - 1 mg PO HS PRN 07/05/18 [Last Taken 09/05/18 21:00] Metoprolol Succinate Xr [Toprol Xl 100 mg (*)] 100 mg PO HS 07/05/18 [Last Taken 02/15/19] Warren-3 Fatty Acids [Fish Oil 1000 mg (*)] 2,000 mg PO BID 07/05/18 [Last Taken 02/15/19] Aspirin [Aspirin 81mg (*)] 81 mg PO HS 02/16/19 [Last Taken 02/15/19] Cetirizine [ZyrTEC 10 mg (*)] 10 mg PO DAILY 02/16/19 [Last Taken Unknown] Rosuvastatin Calcium 2.5 mg PO MOWEFR@09 02/16/19 [Last Taken Unknown] - Smoking Hx Smoking Status: Never smoked ANE Labs/Vital Signs - Labs Result Diagrams: 02/16/19 11:50 02/16/19 08:30 - Vital Signs Blood Pressure: 130/85 Heart Rate: 71 Respiratory Rate: 17 O2 Sat (%): 94 Height: 165.1 cm Weight: 63.503 kg ANE Physical Exam - Airway Neck exam: decreased ROM Mallampati Score: Class 3 Mouth exam: normal dental/mouth exam - Pulmonary Pulmonary: no respiratory distress, no rales or rhonchi - Cardiovascular Cardiovascular: no murmur, rub, or gallop, irregularly irregular - ASA Status ASA Status: III ANE Anesthesia Plan Anesthesia Plan: GA with mask Total IV Anesthesia: Yes
--- NOTE | 2019-02-17 14:04 | POSTANESTH ---
Post Anesthetic Evaluation Cardiovascular Status: Normal, Stable Respiratory Status: Normal, Stable Level of Consciousness/Mental Status: Can Participate in Eval, Mildly Sleepy, Arousable Pain Control: Adequate, Prn Tx Ordered Nausea/Vomiting Control: Adequate, Prn Tx Ordered Complications Possibly Related to Anesthesia: None Noted
--- NOTE | 2019-02-17 14:46 | PDCARTEE ---
CAR MOIZ CAR MOIZ: PROCEDURE PERFORMED: MOIZ INDICATION: TIA symptoms, history of Watchman and bio AVR DETAILS AND FINDINGS: After consent was signed for anesthesia and MOIZ, the patient was positioned to the left lateral side to facilitate ease of MOIZ probe placement. I time out was performed. Anesthesia induced moderate sedation with heart rate, blood pressure, pulse oximetry, and CO2 assessment. MOIZ probe was placed without difficulty, and standard views were obtained. LVEF was grossly normal (60%) normal wall motion Normal atrial dimensions Mild MR Bioprosthetic aortic valve without sclerosis Mild TR Grossly normal pulmonic valve Pacing lead to the RA/RV Watchman device without peridevice flow by Doppler No evidence of thrombus was noted to device region No changes to angulation of the device in comparison to prior (post placement) echocardiography No complications were appreciated Patient tolerated the procedure without incident
--- NOTE | 2019-02-17 15:09 | ECHO ---
[email or web address] [address] [address] Main: [phone] Echocardiography Examination Transesophageal Name: CHRISTOPHE MARC MR#: [id number] Study Date: 02/17/2019 Study Time: 11:17 AM Date of : 1935 Age: 83 year(s) Height: ( ) Weight: ( ) BSA: Gender: Female Examination: MOIZ Contrast: Image Quality: Rhythm: Heart Rate: BP: / Indication: Post Watchman, Bioprosthetic Aortic Valve, Pacemaker Procedure Staff Referring Physician: Global Logistics Manager: Reading Physician: Edwin Ramirez MD Requesting Provider: Ordering Physician: Maurizio Valladares Indication: Post Watchman, Bioprosthetic Aortic Valve, Pacemaker Conclusions (1) Left ventricular systolic ejection fraction was normal (65%) - no LVH (2) Normal RV size and function - Pacing/ICD wire to the RV was noted (3) No LAE or FABIOLA noted - Watchman device was present and unchanged in comparison to prior echo as far as location and orientation (4) Mild MR (5) Bioprosthetic aortic valve without appreciable insufficiency or sclerosis (6) Trivial TR (7) Grossly normal pulmonic valve (8) No pericardial effusion (9) No thrombus was noted Findings Left Ventricle: Normal global systolic left ventricular function. The EF is visually estimated to be 65 %. Right Ventricle: Right ventricular systolic function is normal. There is a pacing/ICD wire present in the right ventricle. Left Atrium: There is a left atrial appendage closure device in the JARRETT, There is no evidence of JARRETT or device thrombus, No Patient: CHRISTOPHE MARC Study Date: 02/17/2019 Page 1 of 2 11:17 AM residual jets around the appendage closure device in the MOIZ angles. . Mitral Valve: Mitral valve appears structurally normal. Mild mitral regurgitation. Aortic Valve: The aortic valve is a bioprosthesis. Normal functioning aortic valve prosthesis. No prosthesis regurgitation. No prosthesis stenosis. Tricuspid Valve: Tricuspid valve leaflets are structurally normal. Trivial tricuspid regurgitation. Pulmonic Valve: Pulmonic leaflets are normal in appearance and function. Pericardium: No pericardial effusion. Exam Details Procedure Ordered: MOIZ (No Signature Object) Patient: CHRISTOPHE MARC Study Date: 02/17/2019 Page 2 of 2 11:17 AM [id number]
[2019-02-17 15:16] VITALS: BP 113/67
--- NOTE | 2019-02-17 15:54 | HOSPPROG ---
Hospitalist Progress Note Assessment/Plan: 83 yoF w trasient leg weakness/numness not a neurovascular event see dc summary Subjective: neg ambrocio. leg sx resolved Objective: Vital Signs Temp Pulse Resp BP Pulse Ox 36.7 C 85 20 113/67 95 02/17/19 07:35 02/17/19 15:15 02/17/19 15:15 02/17/19 15:15 02/17/19 15:15 Laboratory Results 02/16/19 11:50 02/16/19 02/17/19 02/18/19 05:59 05:59 05:59 Intake Total 350 Output Total 200 Balance 150 - Physical Exam Constitutional: no apparent distress Musculoskeletal: full muscle strength Neurologic: AAOx3, No weakness ICD10 Worksheet Patient Problems: Problems Problem Status Onset Paresthesia of left leg Acute Atrial fibrillation with RVR Acute Atrial fibrillation with rapid ventricular response Acute Cerebral edema Acute Encephalopathy acute Acute Ischemic stroke Acute S/P AVR (aortic valve replacement) Acute Subdural hematoma Acute Aortic stenosis, severe Chronic
--- NOTE | 2019-02-17 21:49 | GDS ---
[f rep st] DISCHARGE SUMMARY DISCHARGE DIAGNOSES: 1. Left leg numbness. 2. History of stroke. 3. History of subdural hematoma. 4. Atrial fibrillation, with Watchman device. Please see admission history and physical by Dr. Maurizio Valladares. The patient presented with left leg numbness that was transient, was not associated with left arm numbness; dysphagia; and with isolated neurologic symptoms. She had a normal noncontrast head CT. She was a patient who could not get an MRI. She is allergic to contrast. Could not get a CTA. The symptoms were rapidly resolving. It wa s felt unlikely to be a neurovascular event, but she did receive a MOIZ which showed no thrombus, Watc hman in place, aortic valve in place, really a normal MOIZ for this patient. She is discharged home. It is my opinion that this is not a neurovascular event. /[id number]/MODL
== END 2019-02-17 17:10 | disposition home or self-care (01) ==
LOC: F3N 12:19
PROVIDERS: ADMIT Internal Medicine; ATTEND Internal Medicine
PROC: B245ZZ4 Ultrasonography of Left Heart, Transesophageal (ICD-10-PCS; principal; 2019-02-16)
DX: R20.2 Paresthesia of skin (principal); I48.91 Unspecified atrial fibrillation; I10 Essential (primary) hypertension; I67.2 Cerebral atherosclerosis; M54.9 Dorsalgia, unspecified; J32.0 Chronic maxillary sinusitis; Z86.73 Personal history of transient ischemic attack (TIA), and cerebral infarction without residual deficits; Z86.79 Personal history of other diseases of the circulatory system; Z95.4 Presence of other heart-valve replacement; Z95.0 Presence of cardiac pacemaker; Z96.651 Presence of right artificial knee joint
CPT/HCPCS: 70450; 92523; 93005; 93312; 97161; 97165; G0378; J2704; 82435-PO; 82565-PO; 82947-PO; 84132-PO; 84295-PO; 84520-PO; 85014-ER; J0461